=== PATIENT | male | born 1990 | race Caucasian/White ===

== ENCOUNTER 2019-09-26 20:17 | Emergency (ER) | payer MEDICAID, SELFPAY ==
[2019-09-26 20:22] VITALS: BP 189/148; PULSE 114; RESP 18; TEMP 37.6; O2SAT 98; BMI 32.5
[2019-09-26 20:28] VITALS: BMI 32.5
--- NOTE | 2019-09-26 20:40 | XRR_ITS ---
PROCEDURE INFORMATION: Exam: XR Chest, 1 View Exam date and time: 09/26/2019 9:26 PM Age: 29 years old Clinical indication: Other: Pain all over TECHNIQUE: Imaging protocol: XR of the chest Views: 1 view. COMPARISON: No relevant prior studies available. FINDINGS: Lungs: Unremarkable. No consolidation. Pleural space: Unremarkable. No pleural effusion. No pneumothorax. Heart/Mediastinum: Unremarkable. No cardiomegaly. Bones/joints: Unremarkable. XR/XR chest 1V portable [id number] IMPRESSION: No acute findings.
--- NOTE | 2019-09-26 20:40 | ECG_ITS ---
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 Measurements Intervals [place] Rate: 118 P: FL: -1 QRS: 49 QRSD: 90 T: 15 QT: 326 QTc: 457 Interpretive Statements SINUS TACHYCARDIA Non specific T wave changes Compared to ECG 01/28/2017 21:17:20 No significant change Electronically Signed On 09-27-2019 22:48:07 CDT by Neyda Parra M.D. [id number]
[2019-09-26 21:10] LABS: Basophils # 0.1 10^3/uL (0.0-0.1); Basophils % 0.8 %; Eosinophils % 0.2 %; Hematocrit 50.6 % (42.0-52.0); Hemoglobin 17.3 g/dL (11.7-16.6); Lymphocytes # 2.1 10^3/uL (0.8-4.8); Lymphocytes % 24.7 %; Mean Corpuscular HGB Conc 34.2 g/dL (30.0-36.0); Mean Corpuscular Hemoglobin 31.8 pg (28.0-34.0); Mean Platelet Volume 9.4 fL (7.4-10.4); Monocytes # 0.7 10^3/uL (0.2-0.9); Monocytes % 8.2 %; Neutrophils # 5.5 10^3/uL (1.8-7.7); Neutrophils % 65.7 %; Nucleated Red Blood Cells % 0 %; Platelet Count 407 10^3/cmm (130-400); Red Blood Count 5.44 10^6/uL (4.1-5.3); Red Cell Distribution Width 13.2 % (12.1-15.1); White Blood Count 8.4 10^3/uL (4.0-10.0)
[2019-09-26 21:30] LABS: INR 0.92 (0.8-1.2)
[2019-09-26 21:31] LABS: Partial Thromboplastin Time 27.2 SECONDS (23.9-36.7)
[2019-09-26 21:44] LABS: Alanine Aminotransferase 99 U/L (0-41); Albumin Level 5.2 g/dL (3.5-5.2); Alcohol Level 84 mg/dL (0-10); Alkaline Phosphatase 91 IU/L (40-130); Anion Gap 18.3 (5-19); Aspartate Amino Transferase 57 U/L (0-40); Blood Urea Nitrogen 11 mg/dL (6-20); Calcium 10.4 mg/dL (8.5-10.5); Carbon Dioxide 26 mmol/L (22-29); Chloride 98 mmol/L (98-107); Creatine Phosphokinase 281 U/L (39-308); Globulin 2.7 g/dL (1.3-4.6); Glomerular Filtration Rate 99.1 mL/min (90-130); Glucose 108 mg/dL (65-115); Lipase 30 U/L (13-60); Osmolality Calculated 283 mOsm/kg (285-295); Potassium 4.3 mmol/L (3.5-5.1); Sodium 138 mmol/L (136-145); Total Bilirubin 0.3 mg/dL (0.15-1.2); Total Protein 7.9 g/dL (6.6-8.7)
[2019-09-26 22:32] LABS: Amphetamines Screen Urine Negative (Negative); Barbiturates Screen Urine Negative (Negative); Benzodiazepines Screen Urine Negative (Negative); Cocaine Screen Urine Negative (Negative); Opiate Screen Urine Negative (Negative); PCP Screen Urine Negative (Negative); THC Screen Urine Negative (Negative)
--- NOTE | 2019-09-26 22:54 | ED_ITS ---
HPI - General Adult General: Chief complaint: General Medical Stated complaint: hurts everywhere Time Seen by Provider: 09/26/19 22:46 Source: patient Mode of arrival: ambulatory Limitations: no limitations History of Present Illness: HPI narrative: Cosme is a nice 29-year-old male who comes in today complaining of hurting everywhere. He cannot describe any 1 area that hurts more than another. He complains of diarrhea that just started today but denies any nausea or vomiting or abdominal pain. He also states that he drinks a large amount of alcohol daily. He would consider himself an alcoholic. He states he is never tried to stop drinking well in the past so he is uncertain what would happen if he did stop drinking. When asked what the patient would like help with today he states just get checked out . Associated symptoms: Reports malaise; Deny chest pain, confusion, diaphoresis, dyspnea, headache(s), nausea, rash, palpitations, syncope or vomiting Review of Systems Const: Reports: body aches and malaise; Denies: fever(s), chills, fatigue or diaphoresis Eyes: Denies: change in vision, blurry vision, blind spots, photophobia, eye discharge or eye redness ENMT: Denies: throat pain, odynophagia, hoarseness, swelling of lips/tongue, oral sores, ear or mastoid pain, ear discharge, change in hearing or nasal discharge Card: Denies: chest pain, palpitations, irregular heart rhythm, edema, lightheadedness, syncope, pre-syncope, dyspnea on exertion or orthopnea Resp: Denies: dyspnea, productive cough, non-productive cough, wheezing, hemoptysis or chest congestion GI: Reports: diarrhea; Denies: abdominal pain, nausea, vomiting, hematemesis, coffee ground emesis, heartburn, constipation, GI cramping, hematochezia or melena : Denies: flank pain, dysuria, urinary frequency, urinary urgency or hematuria Musc: Denies: neck pain, back pain, extremity pain, extremity swelling, joint pain, joint swelling, joint redness, joint warmth or joint stiffness Skin/Breast: Denies: rash, pruritus, erythema, skin tenderness or jaundice Neuro: Denies: headache(s), numbness in extremities, weakness in extremities, sensory changes, lack of coordination, difficulty walking, dizziness, vertigo, confusion, Slurred speech present or seizure-like activity Jason/Lymph: Denies: easy bruising, easy bleeding, petechiae, purpura or enlarged lymph nodes All/Imm: Denies: urticaria, throat swelling, tongue swelling, facial swelling or acute wheezing PFSH ED PFSH: Medical History GERD (gastroesophageal reflux disease) Hypertension Social History Smoking and tobacco status: current every day smoker Physical Exam Const: COMMON NORMALS: no acute distress, patient oriented x3, no limitations, healthy appearing and well nourished GENERAL APPEARANCE: cooperative, well kempt and well developed HENMT: COMMON NORMALS: normocephalic, atraumatic, external ears normal, EAC's normal and Normal external nose present HEAD & SCALP: normal to inspection, normocephalic and atraumatic FACE & SINUS: normal facial exam and face symmet terrence NOSE: Normal external nose present and Normal nares present EXTERNAL EAR: Yes external ears normal EXTERNAL AUDITORY CANAL: EAC's normal MOUTH: Normal oral and palatal mucosa present, lip normal and tongue normal Eye: COMMON NORMALS: Equal, round and reactive pupils present and conjunctivae normal GENERAL EYE: appearance normal, both eyes and all related structures ALIGNMENT: Yes alignment normal PERIORBITAL: periorbital findings normal EYELID: eyelids normal CONJUNCTIVA: Yes conjunctivae normal SCLERA: sclerae normal PUPIL: Yes Equal, round and reactive pupils present Neck/C-Spine: COMMON NORMALS: full ROM, no lymphadenopathy, supple, no meningeal signs and no JVD GENERAL: Yes normal visual inspection and Yes trachea midline Chest: COMMONS NORMALS: normal inspection of the chest and normal palpation of entire chest wall Resp: COMMON NORMALS: normal respiratory effort, No retractions and No use of accessory muscles EFFORT & INSPECTION: Yes able to speak in complete sentences and Yes symmetric chest movement AUSCULTATION: no crackles, no rales, no rhonchi and no wheezes Cardio: COMMON NORMALS: no JVD, regular rate, regular rhythm, S1 normal heart sound present and S2 normal heart sound present RATE: regular rate RHYTHM: regular rhythm HEART SOUNDS: S1 normal heart sound present, S2 normal heart sound present, no click, no gallops, no murmurs, no rubs and abnormal split S2 GI: COMMON NORMALS: Soft to palpation and No hepatosplenomegaly present PALPATION: Yes Soft to palpation, No Tenderness to palpation present (GI), No Guarding due to palpation present (GI), No Rigid due to palpation, Yes No hepatosplenomegaly present, No Hernia present, No Palpable mass present and No Pulsatile mass present : COMMON NORMALS: Yes no CVA tenderness BLADDER/KIDNEY EXAM: Yes no CVA tenderness Back/Pelvis: COMMON NORMALS: no CVA tenderness, thoracic and lumbar spine normal to inspection, no thoracic nor lumbar tenderness and thoraco-lumbar ROM normal Extremity: COMMON NORMALS: normal to inspection, full ROM, capillary refill normal, no joint enlargement, no clubbing, cyanosis or edema and no calf tenderness Neuro: COMMON NORMALS: patient oriented x3, CN's II-XII intact bilaterally, moves all extremities, no focal motor deficits and no sensory deficits noted MENINGEAL SIGNS: Yes no meningeal signs SPEECH: speech normal Psych: COMMON NORMALS: mental status grossly normal, Normal thought process present, cooperative, normal affect, speech normal and activity/motor behavior normal APPEARANCE: Yes well kempt SPEECH: Yes normal speech THOUGHT PROCESS: Normal thought process present Skin: COMMON NORMALS: no rashes or lesions noted, turgor normal, no jaundice, no petechiae and no mottling GENERAL SKIN EXAM: no rashes or lesions noted and turgor normal Course Vital Signs: Vital signs: Vital Signs Temperature 99.7 F H 09/26/19 20:22 Pulse Rate 100 09/27/19 01:11 Respiratory Rate 20 H 09/27/19 01:11 Blood Pressure 184/102 09/27/19 01:11 Pulse Oximetry 96 09/27/19 01:11 MDM - General Adult MDM Narrative: Medical decision making narrative: Cosme is ready to go home at this time. He states he wants to think about quitting drinking but does not intend to stop at this point. I believe he is an mild withdrawals even though he has a positive alcohol level it sounds as though he drinks heavily every day. He states he is tried to quit before and he is spoken with his nurse practitioner who is his primary care provider which she has not given him medicines that have been effective. I reviewed the case with Dr. Leslee Paradise who agrees to see the patient in the office early next week to discuss something stronger like Ativan or Librium but she wants to meet with him first to have that discussion as we want to be certain the patient will not take this medication and drink at the same time. I have offered inpatient admission to the patient for this but he refuses. He appears to be of sound mind and has the capacity to make this decision without any sign of impairment. I will go ahead and discharge him home per his request. Lab Data: Attestation: I reviewed the patient's lab results. Labs: Lab Results 09/26/19 09/26/19 09/26/19 Range/Units 21:00 21:00 21:00 WBC 8.4 (4.0-10.0) 10^3/ uL RBC 5.44 H (4.1-5.3) 10^6/u L Hgb 17.3 H (11.7-16.6) g/dL Hct 50.6 (42.0-52.0) % MCV 93.0 (80-94) fL MCH 31.8 (28.0-34.0) pg MCHC 34.2 (30.0-36.0) g/dL RDW 13.2 (12.1-15.1) % Plt Count 407 H (130-400) 10^3/c mm MPV 9.4 (7.4-10.4) fL Neut % (Auto) 65.7 % Lymph % (Auto) 24.7 % [place] % (Auto) 8.2 % Eos % (Auto) 0.2 % Baso % (Auto) 0.8 % Neut # (Auto) 5.5 (1.8-7.7) 10^3/u L Lymph # (Auto) 2.1 (0.8-4.8) 10^3/u L [place] # (Auto) 0.7 (0.2-0.9) 10^3/u L Eos # (Auto) 0.0 (0.0-0.8) 10^3/u L Baso # (Auto) 0.1 (0.0-0.1) 10^3/u L Nucleated RBC % (a uto) 0 % Nucleated RBCs # 0.0 /100WBC PT 12.60 (10.5-13.3) SECO NDS INR 0.92 (0.8-1.2) APTT 27.2 (23.9-36.7) SECO NDS Sodium 138 (136-145) mmol/L Potassium 4.3 (3.5-5.1) mmol/L Chloride 98 (98-107) mmol/L Carbon Dioxide 26 (22-29) mmol/L Anion Gap 18.3 (5-19) BUN 11 (6-20) mg/dL Creatinine 0.9 (0.7-1.2) mg/dL GFR Calculation 99.1 (90-130) mL/min Glucose 108 (65-115) mg/dL Calculated Osmolal ity 283 L (285-295) mOsm/k g Calcium 10.4 (8.5-10.5) mg/dL Magnesium 2.0 (1.7-2.3) mg/dL Total Bilirubin 0.3 (0.15-1.2) mg/dL AST 57 H (0-40) U/L ALT 99 H (0-41) U/L Alkaline Phosphata se 91 (40-130) IU/L Creatine Kinase 281 (39-308) U/L Total Protein 7.9 (6.6-8.7) g/dL Albumin 5.2 (3.5-5.2) g/dL Globulin 2.7 (1.3-4.6) g/dL Lipase 30 (13-60) U/L Urine Color (Yellow) Urine Appearance (CLEAR) Urine pH (5-7) Ur Specific Gravit y (1.005-1.030) Urine Protein (Negative) Urine Glucose (UA) (Normal) Urine Ketones (Negative) Urine Blood (Negative) Urine Nitrate (Negative) Urine Bilirubin (NEGATIVE) Urine Urobilinogen (Negative) mg/dL Ur Leukocyte Alexia ase (Negative) Urine RBC (0-2) /hpf Urine WBC (0-5) /hpf Ur Squamous Epith Cells (0-5) Urine Bacteria (NONE) Urine Opiates Scre en (Negative) ng/mL Ur Barbiturates Sc reen (Negative) ng/mL Ur Phencyclidine S crn (Negative) ng/mL Ur Amphetamines Sc reen (Negative) ng/mL U Benzodiazepines Scrn (Negative) ng/mL Urine Cocaine Scre en (Negative) ng/mL U Marijuana (THC) Screen (Negative) ng/mL Ethyl Alcohol 84 H (0-10) mg/dL 09/26/19 09/26/19 Range/Units 21:00 21:00 WBC (4.0-10.0) 10^3/ uL RBC (4.1-5.3) 10^6/u L Hgb (11.7-16.6) g/dL Hct (42.0-52.0) % MCV (80-94) fL MCH (28.0-34.0) pg MCHC (30.0-36.0) g/dL RDW (12.1-15.1) % Plt Count (130-400) 10^3/c mm MPV (7.4-10.4) fL Neut % (Auto) % Lymph % (Auto) % [place] % (Auto) % Eos % (Auto) % Baso % (Auto) % Neut # (Auto) (1.8-7.7) 10^3/u L Lymph # (Auto) (0.8-4.8) 10^3/u L [place] # (Auto) (0.2-0.9) 10^3/u L Eos # (Auto) (0.0-0.8) 10^3/u L Baso # (Auto) (0.0-0.1) 10^3/u L Nucleated RBC % (a uto) % Nucleated RBCs # /100WBC PT (10.5-13.3) SECO NDS INR (0.8-1.2) APTT (23.9-36.7) SECO NDS Sodium (136-145) mmol/L Potassium (3.5-5.1) mmol/L Chloride (98-107) mmol/L Carbon Dioxide (22-29) mmol/L Anion Gap (5-19) BUN (6-20) mg/dL Creatinine (0.7-1.2) mg/dL GFR Calculation (90-130) mL/min Glucose (65-115) mg/dL Calculated Osmolal ity (285-295) mOsm/k g Calcium (8.5-10.5) mg/dL Magnesium (1.7-2.3) mg/dL Total Bilirubin (0.15-1.2) mg/dL AST (0-40) U/L ALT (0-41) U/L Alkaline Phosphata se (40-130) IU/L Creatine Kinase (39-308) U/L Total Protein (6.6-8.7) g/dL Albumin (3.5-5.2) g/dL Globulin (1.3-4.6) g/dL Lipase (13-60) U/L Urine Color Yellow (Yellow) Urine Appearance Clear (CLEAR) Urine pH 7 (5-7) Ur Specific Gravit y 1.005 (1.005-1.030) Urine Protein Neg (Negative) Urine Glucose (UA) Norm (Normal) Urine Ketones Negative (Negative) Urine Blood Neg (Negative) Urine Nitrate Negative (Negative) Urine Bilirubin Neg (NEGATIVE) Urine Urobilinogen Norm (Negative) mg/dL Ur Leukocyte Alexia ase Negative (Negative) Urine RBC None (0-2) /hpf Urine WBC None (0-5) /hpf Ur Squamous Epith Cells None (0-5) Urine Bacteria Trace (NONE) Urine Opiates Scre en Negative (Negative) ng/mL Ur Barbiturates Sc reen Negative (Negative) ng/mL Ur Phencyclidine S crn Negative (Negative) ng/mL Ur Amphetamines Sc reen Negative (Negative) ng/mL U Benzodiazepines Scrn Negative (Negative) ng/mL Urine Cocaine Scre en Negative (Negative) ng/mL U Marijuana (THC) Screen Negative (Negative) ng/mL Ethyl Alcohol (0-10) mg/dL EKG Data^: EKG 1: Attestation: I personally reviewed and interpreted this EKG as follows: EKG interpretation date: 09/26/19 EKG interpretation time: 20:52 Interpretation: Normal sinus rhythm at 118 beats a minute, nonspecific ST-T wave changes. Computer generated interpretation: Chest X-Ray 09/26/19 20:40 IMPRESSION: No acute findings. Discharge Plan Discharge Patient Disposition: Home, Self-Care Clinical Impression: Alcoholism Condition: Stable Discharge Orders: Discharge Order (Routine); Ordered 09/26/19 Ordered By: Margie Carrillo Referrals: Leslee Jarvis MD [Staff Physician] - 1-3 days Discharge Diet: Advance as tolerated Discharge Activity: Increase activity as tolerated Patient Instructions: Alcoholism, Alcohol Intoxication (ED), Alcohol Withdrawal (ED) Activity Restrictions/Additional Instructions: Please return to the ER immediately for any of the signs or symptoms listed on your discharge instruction sheets, worsening/changing of your symptoms, you are not getting better as quickly as expected, or for ANY other cause or concerns. Return to the ER if your symptoms changes or worsen in any way or you have any other cause for concerns. Discharge Date/Time: 09/27/19 01:49 Coding Level of Care Code ED Belt Operator for Sarah Fwd Exam Comprehensive
[2019-09-26] MEDS: ondansetron 2 mg/ML SDV 2 mL 4 MG IVP (23:15)
[2019-09-26] MEDS: LORazepam 2 mg/mL INJ 1 mL 1 MG IVP (23:15)
[2019-09-26] MEDS: folic acid 1 MG, multivitamin inj 10 ML, thiamine 100 MG in sodium chloride 0.9% 1,000 ML 252.8 MG IV (23:30)
[2019-09-26 23:35] LABS: Bacteria Urine TRACE; Bilirubin Urine Neg (NEGATIVE); Blood Urine Neg (Negative); Glucose Urine UA Norm (Normal); Ketones Urine Negative (Negative); Leukocyte Esterase Urine Negative (Negative); Nitrate Urine Negative (Negative); Protein Urine Neg (Negative); Specific Gravity, Urine 1.005 (1.005-1.030); Urine Appearance Clear (CLEAR); Urine Color Yellow (Yellow); Urobilinogen Urine Norm (Negative); pH Urine 7 (5-7)
[2019-09-27 01:11] VITALS: BP 184/102; PULSE 100; RESP 20; O2SAT 96
[2019-09-27] MEDS: LORazepam 2 mg/mL INJ 1 mL 1 MG IVP (01:18)
== END 2019-09-27 01:49 | disposition home or self-care (01) ==
PROVIDERS: Emergency Provider Emergency Medicine
DX: F10.20 Alcohol dependence, uncomplicated (principal); Y90.9 Presence of alcohol in blood, level not specified; I10 Essential (primary) hypertension; F17.210 Nicotine dependence, cigarettes, uncomplicated
CPT/HCPCS: 12345; 36415; 71045; 80053; 80306; 80307; 81001; 82550; 83690; 83735; 85025; 85610; 85730; 93005; 96361; 96374; 96375; 96376; 99283; J2060; J2405; J3411; J3490; J7030

== ENCOUNTER 2020-04-06 12:27 | Emergency (ER) | payer MEDICAID, SELFPAY ==
[2020-04-06 12:33] VITALS: BP 153/114; PULSE 76; RESP 18; TEMP 36.7; O2SAT 100; BMI 29.5
[2020-04-06 13:05] VITALS: BP 127/92; PULSE 72; RESP 18; O2SAT 95
--- NOTE | 2020-04-06 13:32 | W.ED.ABDPA2 ---
HPI - Abdominal Pain General: Chief Complaint: Abdominal Pain Stated Complaint: SEVERE ABDOMINAL PAIN Time Seen by Provider: 04/06/20 13:32 Source: patient Mode of arrival: ambulatory Limitations: no limitations History of Present Illness: HPI narrative: Patient comes in with complaints of mid epigastric abdominal pain. Patient reports being without his omeprazole for about 1 week and started having discomfort yesterday. Patient went and got omeprazole and took 3 tablets yesterday but continued to have some discomfort this morning. Patient does report some improvement since arriving to the ER. Patient appears well. Patient appears in no acute distress. Patient reports history of hypertension and alcoholism. Review of Systems General: Reports: 10 or more systems reviewed and unremarkable except in HPI and below GI: Reports: abdominal pain [facility] ED PFSH: Medical History (Updated 04/06/20 @ 15:44 by ELAN Dao) GERD (gastroesophageal reflux disease) Hypertension Social History Smoking and tobacco status: current every day smoker Physical Exam Const: COMMON NORMALS: no acute distress and patient oriented x3 GENERAL APPEARANCE: cooperative HENMT: COMMON NORMALS: normocephalic and Normal external nose present HEAD & SCALP: normal to inspection and normocephalic NOSE: Normal external nose present MOUTH: Normal oral and palatal mucosa present THROAT: posterior oropharynx normal Eye: GENERAL EYE: appearance normal, both eyes and all related structures Neck/C-Spine: COMMON NORMALS: full ROM Lymph: LYMPHATIC: no lymphadenopathy noted Chest: COMMONS NORMALS: normal inspection of the chest Resp: COMMON NORMALS: normal respiratory effort EFFORT & INSPECTION: Yes able to speak in complete sentences Cardio: COMMON NORMALS: regular rate and regular rhythm RATE: regular rate RHYTHM: regular rhythm GI: COMMON NORMALS: Soft to palpation and non-tender AUSCULTATION: Yes normoactive bowel sounds PALPATION: Yes Soft to palpation : COMMON NORMALS: Yes no CVA tenderness BLADDER/KIDNEY EXAM: Yes no CVA tenderness Back/Pelvis: COMMON NORMALS: no CVA tenderness and thoracic and lumbar spine normal to inspection Extremity: COMMON NORMALS: normal to inspection Neuro: COMMON NORMALS: patient oriented x3 and moves all extremities Psych: COMMON NORMALS: mental status grossly normal and cooperative Skin: COMMON NORMALS: no rashes or lesions noted GENERAL SKIN EXAM: no rashes or lesions noted Course Vital Signs: Vital signs: Vital Signs Temperature 98.1 F 04/06/20 12:33 Pulse Rate 76 04/06/20 12:33 Respiratory Rate 18 04/06/20 12:33 Blood Pressure 153/114 04/06/20 12:33 Pulse Oximetry 100 04/06/20 12:33 MDM - Abdominal Pain MDM Narrative: Medical decision making narrative: Patient comes in today with complaints of epigastric abdominal pain. On exam abdomen is soft and nontender. Patient appears well. Heart tones are normal. Lung sounds are clear. Vital signs are normal except for mild elevation in blood pressure. Differential diagnosis includes but not limited to gastritis, diverticulitis, appendicitis, colitis. Laboratory values noted white blood cell count of 14,000, platelets of 429. CMP was normal. CT scan of the abdomen and pelvis noted some constipation but otherwise normal. Reviewed exam with patient suspect patient probably has gastritis secondary to the abrupt cessation of his PPI. Will restart pantoprazole and recommend follow-up for further evaluation of his gastric discomfort with recommendations of endoscopy. Patient reports understanding and agreed to plan and states he will follow up with his primary care provider, Natividad Easley. Lab Data: Labs: Lab Results 04/06/20 04/06/20 Range/Units 14:24 14:24 WBC 14.9 H (4.0-10.0) 10^3/ uL RBC 5.43 H (4.1-5.3) 10^6/u L Hgb 16.3 (11.7-16.6) g/dL Hct 49.2 (42.0-52.0) % MCV 90.6 (80-94) fL MCH 30.0 (28.0-34.0) pg MCHC 33.1 (30.0-36.0) g/dL RDW 13.8 (12.1-15.1) % Plt Count 429 H (130-400) 10^3/c mm MPV 9.5 (7.4-10.4) fL Neut % (Auto) 82.6 % Lymph % (Auto) 10.8 % [place] % (Auto) 5.9 % Eos % (Auto) 0.2 % Baso % (Auto) 0.1 % Neut # (Auto) 12.29 H (1.8-7.7) 10^3/u L Lymph # (Auto) 1.6 (0.8-4.8) 10^3/u L [place] # (Auto) 0.9 (0.2-0.9) 10^3/u L Eos # (Auto) 0.0 (0.0-0.8) 10^3/u L Baso # (Auto) 0.0 (0.0-0.1) 10^3/u L Nucleated RBC % (a uto) 0 % Nucleated RBCs # 0.0 /100WBC Sodium 137 (136-145) mmol/L Potassium 4.7 (3.5-5.1) mmol/L Chloride 100 (98-107) mmol/L Carbon Dioxide 26 (22-29) mmol/L Anion Gap 15.7 (5-19) BUN 15 (6-20) mg/dL Creatinine 0.8 (0.7-1.2) mg/dL GFR Calculation 113.5 (90-130) mL/min Glucose 105 (65-115) mg/dL Calculated Osmolal ity 285 (285-295) mOsm/k g Calcium 9.7 (8.5-10.5) mg/dL Total Bilirubin 0.3 (0.15-1.2) mg/dL AST 17 (0-40) U/L ALT 35 (0-41) U/L Alkaline Phosphata se 87 (40-130) IU/L Total Protein 7.9 (6.6-8.7) g/dL Albumin 4.7 (3.5-5.2) g/dL Globulin 3.2 (1.3-4.6) g/dL Lipase 23 (13-60) U/L Discharge Plan Discharge Patient Disposition: Home Clinical Impression: Gastritis Qualifiers: Gastritis type: unspecified gastritis Chronicity: chronic Gastritis bleeding: presence of bleeding unspecified Qualified Code(s): K29.50 - Unspecified chronic gastritis without bleeding Condition: Stable Prescriptions: New pantoprazole 40 mg tablet,delayed release (DR/EC) 40 mg PO DAILY Qty: 30 RF: 0 Discontinued omeprazole 20 mg Tablet,Delayed Release (Dr/Ec) 20 mg PO DAILY@1000 RF: 0 No Action losartan 50 mg tablet 50 mg PO DAILY@1000 RF: 0 amlodipine 10 mg Tablet 10 mg PO DAILY@1000 RF: 0 metoprolol tartrate 25 mg Tablet 12.5 mg PO BID@1000,2100 RF: 0 Discharge Orders: Discharge ED (Routine); Ordered 04/06/20 Ordered By: Idris Figueroa Discharge Diet: Usual diet Discharge Activity: Increase activity as tolerated Patient Instructions: Gastritis (ED), Diet for Ulcers and Gastritis (ED) Activity Restrictions/Additional Instructions: Drink plenty of fluids. Medications as directed. Follow-up with primary care for further treatment and evaluation. Return to the emergency department for new concerns. Coding Level of Care Code ED Market Research Assistant for Sarah Fwcurtis Exam Comprehensive
[2020-04-06 14:35] VITALS: BP 124/79; PULSE 66; RESP 18; O2SAT 98
[2020-04-06 14:35] LABS: Basophils % 0.1 %; Eosinophils % 0.2 %; Hematocrit 49.2 % (42.0-52.0); Hemoglobin 16.3 g/dL (11.7-16.6); Lymphocytes # 1.6 10^3/uL (0.8-4.8); Lymphocytes % 10.8 %; Mean Corpuscular HGB Conc 33.1 g/dL (30.0-36.0); Mean Corpuscular Volume 90.6 fL (80-94); Mean Platelet Volume 9.5 fL (7.4-10.4); Monocytes # 0.9 10^3/uL (0.2-0.9); Monocytes % 5.9 %; Neutrophils # 12.29 10^3/uL (1.8-7.7); Neutrophils % 82.6 %; Nucleated Red Blood Cells % 0 %; Platelet Count 429 10^3/cmm (130-400); Red Blood Count 5.43 10^6/uL (4.1-5.3); Red Cell Distribution Width 13.8 % (12.1-15.1); White Blood Count 14.9 10^3/uL (4.0-10.0)
--- NOTE | 2020-04-06 14:47 | CT_ITS ---
WS: [id number] CT ABDOMEN PELVIS TECHNIQUE: Contrast-enhanced CT of the abdomen and pelvis with coronal and sagittal reformatted image s. CLINICAL INFORMATION: abd pain COMPARISON: None. DLP: 817.[address] scans at [facility] use at least one of these dose optimization techniques: automat ed exposure control; mA and/or kV adjustment per patient size (includes targeted exams where dose is matched to clinical indication); or iterative reconstruction. FINDINGS: Mild diffuse fatty infiltration of the liver. Normal gallbladder. Normal portal vein and splenic vein . Normal spleen. Normal GE junction. No evidence of small or large bowel obstruction. Normal caliber abdominal aorta. Adrenal glands are normal. Normal renal parenchymal enhancement. No hydronephrosis. Normal appendix in the right lower quadrant. Scattered fluid in the transverse colon with a few air-f luid levels. No evidence of high-grade small or large bowel obstruction. Mild sigmoid constipation. N o abdominal or pelvic lymphadenopathy. No inguinal lymphadenopathy. CT/CT abdomen pelvis w con* [id number] IMPRESSION: 1. Normal bilateral renal precarinal enhancement. No hydronephrosis. 2. Both ureters are decompressed. 3. Normal appendix in the right lower quadrant. 4. Scattered fluid in the transverse colon. No evidence of high-grade small or large bowel obstruction. 5. Mild sigmoid constipation. 6. No other significant findings.
[2020-04-06 14:49] LABS: Alanine Aminotransferase 35 U/L (0-41); Albumin Level 4.7 g/dL (3.5-5.2); Alkaline Phosphatase 87 IU/L (40-130); Anion Gap 15.7 (5-19); Aspartate Amino Transferase 17 U/L (0-40); Blood Urea Nitrogen 15 mg/dL (6-20); Calcium 9.7 mg/dL (8.5-10.5); Carbon Dioxide 26 mmol/L (22-29); Chloride 100 mmol/L (98-107); Creatinine Clr Calc Pharmacy 150.3089; Globulin 3.2 g/dL (1.3-4.6); Glomerular Filtration Rate 113.5 mL/min (90-130); Glucose 105 mg/dL (65-115); Lipase 23 U/L (13-60); Osmolality Calculated 285 mOsm/kg (285-295); Potassium 4.7 mmol/L (3.5-5.1); Sodium 137 mmol/L (136-145); Total Bilirubin 0.3 mg/dL (0.15-1.2); Total Protein 7.9 g/dL (6.6-8.7)
[2020-04-06] MEDS: iohexol 300 mg/mL 100 mL Btl IV (15:00)
[2020-04-06] MEDS: promethazine 25 mg/mL SDV 1 mL 12.5 MG XX (15:33)
[2020-04-06] MEDS: famotidine 20 mg/2 mL INJ IVP (15:33)
[2020-04-06] MEDS: sodium chloride 0.9% 500 ML 999 ML IV (15:42)
[2020-04-06 16:17] VITALS: BP 138/77; PULSE 67; RESP 18; O2SAT 98
[2020-04-06 16:20] VITALS: BP 128/64; PULSE 74; RESP 18; O2SAT 98
== END 2020-04-06 16:22 | disposition home or self-care (01) ==
PROVIDERS: Emergency Provider Nurse Practitioner Family
DX: K29.50 Unspecified chronic gastritis without bleeding (principal); I10 Essential (primary) hypertension; F17.210 Nicotine dependence, cigarettes, uncomplicated
CPT/HCPCS: 12345; 74177; 80053; 83690; 85025; 96374; 99282; 99283; J2550; J3490; J7040; Q9967

== ENCOUNTER 2020-04-13 03:03 | Inpatient (IN) | payer MEDICAID, SELFPAY ==
[2020-04-13 03:05] VITALS: BP 159/113; PULSE 116; RESP 21; TEMP 36.9; O2SAT 100; BMI 29.5
--- NOTE | 2020-04-13 03:12 | ED_ITS ---
HPI - Abdominal Pain General: Chief Complaint: Anxiety Stated Complaint: STRESSED / ABD PAIN Time Seen by Provider: 04/13/20 03:06 Source: patient and EMS Mode of arrival: EMS Limitations: no limitations History of Present Illness: HPI narrative: 29-year-old male is here by EMS. Patient called EMS as he had been stressed out. He states he is also been having abdominal pain. Patient was seen here for gastritis last week and had a normal CT of his abdomen. Patient states he continued to have some sharp pains he rates a 4 out of 10. He states that he has been stressed out things at home but denies any suicidal or homicidal thoughts. Associated Symptoms: Denies chills, dysuria and fever(s) Review of Systems Const: Denies: fever(s), chills, body aches or change in appetite Eyes: Denies: blurry vision or eye discomfort ENMT: Denies: throat pain or dental pain Card: Denies: chest pain Resp: Denies: dyspnea GI: Reports: abdominal pain : Denies: dysuria Musc: Denies: neck pain or back pain Skin/Breast: Denies: rash Neuro: Denies: headache(s) Psych: Denies: depression Jason/Lymph: Denies: easy bruising All/Imm: Denies: urticaria PFSH ED PFSH: Medical History (Updated 04/13/20 @ 05:10 by Pino Raines MD) GERD (gastroesophageal reflux disease) Hypertension Social History Smoking and tobacco status: current every day smoker Physical Exam Const: COMMON NORMALS: no acute distress, patient oriented x3 and healthy nicole earing HENMT: COMMON NORMALS: normocephalic and atraumatic HEAD & SCALP: normocephalic and atraumatic Eye: COMMON NORMALS: Equal, round and reactive pupils present and EOMs intact bilaterally PUPIL: Yes Equal, round and reactive pupils present Neck/C-Spine: COMMON NORMALS: full ROM and supple Chest: COMMONS NORMALS: normal inspection of the chest and normal palpation of entire chest wall Resp: COMMON NORMALS: normal respiratory effort, No retractions, No use of accessory muscles and clear to auscultation bilaterally AUSCULTATION: clear to auscultation bilaterally Cardio: COMMON NORMALS: regular rate, regular rhythm and No murmurs present (Cardio) RATE: regular rate RHYTHM: regular rhythm GI: COMMON NORMALS: Normal to inspection, nondistended, normoactive bowel sounds present, Soft to palpation, non-tender and no masses PALPATION: Yes Soft to palpation Extremity: COMMON NORMALS: normal to inspection and full ROM Neuro: COMMON NORMALS: patient oriented x3, moves all extremities and no focal motor deficits Psych: COMMON NORMALS: mental status grossly normal, Normal thought process present and cooperative THOUGHT PROCESS: Normal thought process present Skin: COMMON NORMALS: no rashes or lesions noted and no wounds GENERAL SKIN EXAM: no rashes or lesions noted Course Vital Signs: Vital signs: Vital Signs Temperature 98.4 F 04/13/20 03:05 Pulse Rate 74 04/13/20 04:47 Respiratory Rate 20 H 04/13/20 04:47 Blood Pressure 172/110 04/13/20 04:47 Pulse Oximetry 99 04/13/20 04:47 MDM - Abdominal Pain MDM Narrative: Medical decision making narrative: Patient presents here with abdominal pain. After talking for the states he has been seeing some things and thinks that people are out to get him. He is not suicidal homicidal but he is voluntarily wanting to be admitted to the psychiatric unit. I spoke to Dr. Campos and will admit. Patient is not under 96-hour hold as he does not pose a threat to himself or others at this time but will voluntarily admit him to the psychiatric unit. His abdominal exam here is benign and blood work is all normal. He had a CT 1 week ago just showed gastritis. Lab Data: Labs: Lab Results 04/13/20 04/13/20 04/13/20 Range/Units 03:25 03:25 04:44 WBC 12.8 H (4.0-10.0) 10^3/ uL RBC 5.30 (4.1-5.3) 10^6/u L Hgb 16.1 (11.7-16.6) g/dL Hct 46.5 (42.0-52.0) % MCV 87.7 (80-94) fL MCH 30.4 (28.0-34.0) pg MCHC 34.6 (30.0-36.0) g/dL RDW 13.6 (12.1-15.1) % Plt Count 510 H (130-400) 10^3/c mm MPV 9.1 (7.4-10.4) fL Neut % (Auto) 69.8 % Lymph % (Auto) 22.5 % [place] % (Auto) 6.7 % Eos % (Auto) 0.3 % Baso % (Auto) 0.5 % Neut # (Auto) 8.90 H (1.8-7.7) 10^3/u L Lymph # (Auto) 2.9 (0.8-4.8) 10^3/u L [place] # (Auto) 0.9 (0.2-0.9) 10^3/u L Eos # (Auto) 0.0 (0.0-0.8) 10^3/u L Baso # (Auto) 0.1 (0.0-0.1) 10^3/u L Nucleated RBC % (a uto) 0 % Nucleated RBCs # 0.0 /100WBC Sodium 133 L (136-145) mmol/L Potassium 3.4 L (3.5-5.1) mmol/L Chloride 93 L (98-107) mmol/L Carbon Dioxide 22 (22-29) mmol/L Anion Gap 21.4 H (5-19) BUN 12 (6-20) mg/dL Creatinine 0.8 (0.7-1.2) mg/dL GFR Calculation 113.5 (90-130) mL/min Glucose 122 H (65-115) mg/dL Calculated Osmolal ity 277 L (285-295) mOsm/k g Calcium 10.2 (8.5-10.5) mg/dL Total Bilirubin 1.0 (0.15-1.2) mg/dL AST 18 (0-40) U/L ALT 29 (0-41) U/L Alkaline Phosphata se 79 (40-130) IU/L Total Protein 8.0 (6.6-8.7) g/dL Albumin 4.8 (3.5-5.2) g/dL Globulin 3.2 (1.3-4.6) g/dL Salicylates < 0.3 L (3-10) mg/dL Urine Opiates Scre en Negative (Negative) ng/mL Acetaminophen < 5.0 L (10-30) ug/mL Ur Barbiturates Sc reen Negative (Negative) ng/mL Ur Phencyclidine S crn Negative (Negative) ng/mL Ur Amphetamines Sc reen Positive H (Negative) ng/mL U Benzodiazepines Scrn Negative (Negative) ng/mL Urine Cocaine Scre en Negative (Negative) ng/mL U Marijuana (THC) Screen Negative (Negative) ng/mL Ethyl Alcohol < 10 (0-10) mg/dL Discharge Plan Discharge Patient Disposition: Admitted As Inpatient Admit Provider: José Miguel Campos Clinical Impression: Anxiety, Psychosis, Methamphetamine abuse Condition: Stable Coding Level of Care Code ED Tool And Die Manager for Sarah Fwd Exam Comprehensive
[2020-04-13] MEDS: LORazepam 2 mg/mL INJ 1 mL IV (03:27)
[2020-04-13] MEDS: sodium chloride 0.9% 1,000 ML 999 ML IV (03:27)
[2020-04-13 03:40] LABS: Basophils # 0.1 10^3/uL (0.0-0.1); Basophils % 0.5 %; Eosinophils % 0.3 %; Hematocrit 46.5 % (42.0-52.0); Hemoglobin 16.1 g/dL (11.7-16.6); Lymphocytes # 2.9 10^3/uL (0.8-4.8); Lymphocytes % 22.5 %; Mean Corpuscular HGB Conc 34.6 g/dL (30.0-36.0); Mean Corpuscular Hemoglobin 30.4 pg (28.0-34.0); Mean Corpuscular Volume 87.7 fL (80-94); Mean Platelet Volume 9.1 fL (7.4-10.4); Monocytes # 0.9 10^3/uL (0.2-0.9); Monocytes % 6.7 %; Neutrophils % 69.8 %; Nucleated Red Blood Cells % 0 %; Platelet Count 510 10^3/cmm (130-400); Red Cell Distribution Width 13.6 % (12.1-15.1); White Blood Count 12.8 10^3/uL (4.0-10.0)
[2020-04-13 04:11] LABS: Alanine Aminotransferase 29 U/L (0-41); Albumin Level 4.8 g/dL (3.5-5.2); Alkaline Phosphatase 79 IU/L (40-130); Anion Gap 21.4 (5-19); Aspartate Amino Transferase 18 U/L (0-40); Blood Urea Nitrogen 12 mg/dL (6-20); Calcium 10.2 mg/dL (8.5-10.5); Carbon Dioxide 22 mmol/L (22-29); Chloride 93 mmol/L (98-107); Creatinine Clr Calc Pharmacy 150.3089; Globulin 3.2 g/dL (1.3-4.6); Glomerular Filtration Rate 113.5 mL/min (90-130); Glucose 122 mg/dL (65-115); Osmolality Calculated 277 mOsm/kg (285-295); Potassium 3.4 mmol/L (3.5-5.1); Sodium 133 mmol/L (136-145)
[2020-04-13 04:17] LABS: Acetaminophen < 5.0 ug/mL (10-30); Alcohol Level < 10 mg/dL (0-10); Salicylate < 0.3 mg/dL (3-10)
[2020-04-13 04:47] VITALS: BP 172/110; PULSE 74; RESP 20; O2SAT 99
--- NOTE | 2020-04-13 04:47 | PC.NURSE ---
pt continues to move with BP. Several attempt to collect BP measurement
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
[2020-04-13 05:02] LABS: Amphetamines Screen Urine Positive (Negative); Barbiturates Screen Urine Negative (Negative); Benzodiazepines Screen Urine Negative (Negative); Cocaine Screen Urine Negative (Negative); Opiate Screen Urine Negative (Negative); PCP Screen Urine Negative (Negative); THC Screen Urine Negative (Negative)
[2020-04-13 06:00] VITALS: BP 145/102; PULSE 109; RESP 20; TEMP 36.7; O2SAT 98
[2020-04-13] MEDS: hyDROXYzine 25 mg Capsule 50 MG PO (12:10)
[2020-04-13] MEDS: nicotine 2 mg Gum BUCCAL (12:55)
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
[2020-04-13 15:15] VITALS: BP 145/102; PULSE 109; RESP 20; TEMP 36.7; O2SAT 98
--- NOTE | 2020-04-14 09:43 | PC.SLP ---
Smoking Cessation information sent to patient.
== END 2020-04-13 15:15 | disposition left against medical advice (07) | DRG 885 ==
LOC: ER 04:50 → NP 07:33
PROVIDERS: Admitting Provider Psychiatry & Neurology Psychiatry; Emergency Provider Emergency Medicine; PCP Nurse Practitioner Family; Visit Provider Psychiatry & Neurology Psychiatry
DX: F29 Unspecified psychosis not due to a substance or known physiological condition (principal); K21.9 Gastro-esophageal reflux disease without esophagitis; I10 Essential (primary) hypertension; F17.210 Nicotine dependence, cigarettes, uncomplicated; F10.10 Alcohol abuse, uncomplicated; F15.10 Other stimulant abuse, uncomplicated; Z53.29 Procedure and treatment not carried out because of patient's decision for other reasons; F41.9 Anxiety disorder, unspecified
CPT/HCPCS: 12345; 80053; 80306; 80307; 85025; 99282; J2060; J7030

== ENCOUNTER 2020-05-08 10:57 | Emergency (ER) | payer MEDICAID, SELFPAY ==
[2020-05-08 11:00] VITALS: O2SAT 98
[2020-05-08 11:01] VITALS: BP 137/96; RESP 18; TEMP 36.3; O2SAT 98; BMI 27.3
--- NOTE | 2020-05-08 11:08 | ED_ITS ---
HPI - Allergic Reaction General: Chief complaint: Allergic Reaction Stated complaint: RASH Time Seen by Provider: 05/08/20 11:01 Source: patient and EMS Mode of arrival: EMS Limitations: no limitations History of Present Illness: HPI narrative: Patient is a 29-year-old male who presents to ED today via EMS for complaints of a rash. Patient tells me this morning when he awoke he began noticing itchiness all over and when he turned on the lights he noticed a rash. He describes the rash as pruritic. He has no other complaints at this time. Patient is not having any difficulty breathing or swallowing. Denies starting any new medications. Denies any new household, chemical, environmental exposures. No skin sloughing or blistering. No oral/mucosal lesions. MD complaint: hives Onset (ago): hour(s) Exposure: unknown Associated symptoms: Reports itching; Deny nausea or vomiting Treatment prior to arrival: benadryl (50mg IV benadryl given by EMS) Previous Allergic Reaction History: none Review of Systems Const: Denies: fever(s), chills, body aches or fatigue Eyes: Denies: change in vision ENMT: Denies: uvular edema, enlarged tonsils or odynophagia Card: Denies: chest pain Resp: Denies: dyspnea GI: Denies: nausea or vomiting Musc: Denies: neck pain or extremity pain Skin/Breast: Reports: rash and pruritus Neuro: Denies: headache(s), numbness in extremities, weakness in extremities or sensory changes PFS ED PFSH: Medical History (Updated 05/08/20 @ 11:59 by KARISSA Davenport) GERD (gastroesophageal reflux disease) Hypertension Social History Smoking and tobacco status: current every day smoker cigarettes Packs smoked per day: 0.5 Years cigarettes smoked: 16 Second hand smoke exposure: Yes Alcohol intake: current Alcohol intake frequency: few times a week Alcohol type: hard liquor Last alcohol use date: 04/14/20 Other details last alcohol use: drank until drunk Lives independently: No Household members: family Marital status: Single service: No Current occupational status: employed History of recent travel: No Current gender identity: Male Physical Exam Const: COMMON NORMALS: no acute distress, average body habitus, patient oriented x3, no limitations, healthy appearing, alert and well nourished GENERAL APPEARANCE: cooperative ORIENTATION/CONSCIOUSNESS: Yes awake, Yes oriented to person, Yes oriented to place and Yes oriented to time HENMT: COMMON NORMALS: normocephalic and atraumatic HEAD & SCALP: normocephalic and atraumatic MOUTH: Normal oral and palatal mucosa present and other (no angioedema) THROAT: no uvular edema Resp: COMMON NORMALS: normal respiratory effort EFFORT & INSPECTION: Yes able to speak in complete sentences Neuro: TEDDY COMA SCALE: document GCS findings Elma coma scale eye opening: Spontaneous Elma coma scale verbal response: Orientated Teddy coma scale motor response: Obey commands Teddy coma scale total score: 15 COMMON NORMALS: patient oriented x3 SENSORIUM/ORIENTATION: Yes alert, Yes oriented to person, Yes oriented to place and Yes oriented to time Skin: RASHES: rashes noted (diffuse urticaria ) Course Reevaluation(s): Reevaluation #1: Patient's have are almost completely gone following the 50mg IV benadryl given by EMS and the 125mg solu-medrol and 40mg pepcid given here. He is stable for DC with return to ED precautions at this time. Vital Signs: Vital signs: Vital Signs Temperature 97.4 F L 05/08/20 11:01 Pulse Rate 76 05/08/20 11:27 Respiratory Rate 18 05/08/20 11:01 Blood Pressure 126/92 05/08/20 11:27 Pulse Oximetry 98 05/08/20 11:27 Discharge Plan Discharge Patient Disposition: Home Clinical Impression: Urticaria Condition: Stable Prescriptions: No Action amlodipine 10 mg tablet 10 mg PO DAILY@1000 Qty: 30 RF: 2 losartan 50 mg tablet 50 mg PO DAILY@1000 Qty: 30 RF: 2 omeprazole 20 mg capsule,delayed release(DR/EC) 20 mg PO DAILY Qty: 30 RF: 2 metoprolol tartrate 25 mg tablet 12.5 mg PO BID@1000,2100 Qty: 60 RF: 2 fluoxetine [Prozac] 20 mg capsule 20 mg PO DAILY Qty: 30 RF: 2 Discharge Orders: Discharge ED (Routine); Ordered 05/08/20 Ordered By: Mónica Merlos Referrals: Easley,KAREN Cesar [Primary Care Provider] - Patient Instructions: Urticaria, Urticaria (ED) Coding Level of Care Code ED Track Laying Supervisor for Chg Fwd Exam Detailed
[2020-05-08] MEDS: famotidine 20 mg/2 mL INJ 40 MG IVP (11:24)
[2020-05-08 11:27] VITALS: BP 126/92; PULSE 76; O2SAT 98
[2020-05-08 12:22] VITALS: BP 121/87; PULSE 77; O2SAT 97
== END 2020-05-08 12:10 | disposition home or self-care (01) ==
PROVIDERS: Emergency Provider Physician Assistant; PCP Nurse Practitioner Family
DX: L50.9 Urticaria, unspecified (principal); I10 Essential (primary) hypertension; F17.210 Nicotine dependence, cigarettes, uncomplicated
CPT/HCPCS: 12345; 96374; 96375; 99283; J2930; J3490

== ENCOUNTER 2020-07-17 06:38 | Emergency (ER) | payer BC, SELFPAY ==
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
[2020-07-17 06:39] VITALS: BP 160/97; RESP 18; TEMP 36.9
[2020-07-17 06:40] VITALS: RESP 22
[2020-07-17 06:41] VITALS: BMI 30.7
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
[2020-07-17] MEDS: sodium chloride 0.9% 1,000 ML 999 ML IV (06:45)
[2020-07-17] MEDS: succinylcholine 20 mg/mL SDV 10mL 200 MG IVP (06:51)
[2020-07-17] MEDS: vecuronium 10 mg SDV IVP (06:55)
[2020-07-17] MEDS: propofol 1,000 MG/100 ML INJ 6 MG IV (06:55)
[2020-07-17 07:01] VITALS: BP 183/112; PULSE 121; RESP 24; O2SAT 100
--- NOTE | 2020-07-17 07:01 | ECG_ITS ---
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 Measurements Intervals [place] Rate: 123 P: 52 MT: 150 QRS: 43 QRSD: 94 T: 40 QT: 310 QTc: 444 Interpretive Statements SINUS TACHYCARDIA Compared to ECG 09/26/2019 22:51:33 T-wave abnormality no longer present Electronically Signed On 07-18-2020 15:34:19 CDT by Kory Palomo M.D. [id number]
[2020-07-17 07:05] VITALS: BP 170/98; PULSE 117; RESP 24; O2SAT 100
[2020-07-17 07:10] VITALS: BP 160/97; PULSE 114; RESP 20; O2SAT 100
--- NOTE | 2020-07-17 07:44 | ANES.PROC ---
Anesthesia Procedures Procedure/Date: 07/17/20 Intubation: Time Out Performed: No Consent: requested by attending/covering physician and emergency procedure Sedative (amount): etomidate (20 mg) Paralytic (amount): succinylcholine (200 mg) Laryngoscope: Juan C ET Tube Size: 4 ET Tube Uncuffed: No Tube Secured Location: teeth Tube Placement Confirmation: visualized tube passing through cords, equal breath sounds bilaterally and color change noted Patient Tolerated Procedure: well Intubation Complications: none Additional Comments: Order to start propofol sedation OLIVIA
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
== END 2020-07-17 07:30 | disposition short-term general hospital (02) ==
PROVIDERS: Emergency Provider Family Medicine; PCP Nurse Practitioner Family
DX: S01.83XA Puncture wound without foreign body of other part of head, initial encounter (principal); S01.532A Puncture wound without foreign body of oral cavity, initial encounter; X95.9XXA Assault by unspecified firearm discharge, initial encounter; I10 Essential (primary) hypertension; F17.210 Nicotine dependence, cigarettes, uncomplicated
CPT/HCPCS: 36430; 51702; 70250; 71045; 86900; 86920; 93005; 94002; 94799; 96365; 96367; 96368; 99291; 99292; J0330; J2704; J3490; J7030; P9040

== ENCOUNTER 2020-11-02 04:25 | Emergency (ER) | payer BC, MEDICAID, SELFPAY ==
[2020-11-02 04:43] VITALS: BP 163/134; PULSE 131; RESP 18; TEMP 36.7; O2SAT 96; BMI 26.6
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
[2020-11-02] MEDS: LORazepam 2 mg Tablet PO (05:52)
[2020-11-02 06:07] VITALS: BP 157/99; PULSE 126; RESP 18; TEMP 36.7; O2SAT 96
== END 2020-11-02 06:08 | disposition home or self-care (01) ==
PROVIDERS: Emergency Provider Family Medicine; PCP Nurse Practitioner Family
DX: F41.9 Anxiety disorder, unspecified (principal); F43.10 Post-traumatic stress disorder, unspecified; I10 Essential (primary) hypertension; F17.210 Nicotine dependence, cigarettes, uncomplicated
CPT/HCPCS: 99282

== ENCOUNTER 2020-12-01 12:18 | Emergency (ER) | payer BC, MEDICAID, SELFPAY ==
[2020-12-01 12:20] VITALS: BP 139/94; PULSE 69; RESP 18; TEMP 36.4; O2SAT 95; BMI 28.0
--- NOTE | 2020-12-01 13:09 | CT_ITS ---
WS: [id number] Exam: CT lumbar spine wo con* [id number] Date/Time of Exam: 12/01/2020 1:12 PM Reason For Exam: back pain with radicular Leg pain DLP: 2030.[address] scans at [facility] use at least one of these dose optimization techniques: automat ed exposure control; mA and/or kV adjustment per patient size (includes targeted exams where dose is matched to clinical indication); or iterative reconstruction. The lumbar spine evaluated in the axial plane with sagittal and coronal reformatted images. There is posterior right paracentral disc herniation with impingement upon the neural sac and the rig ht nerve root in the subarticular spaces. No other sign of significant disc bulge or spinal canal benji nosis. Bulging disc material narrows the right neural foramen at L5-S1. Remaining neural foramina wer e patent. There were no fractures or significant bony anomalies identified. The vertebrae and posteri or elements appear normal otherwise. No retroperitoneal or paraspinal soft tissue abnormalities were demonstrated. CT/CT lumbar spine wo con* [id number] IMPRESSION: 1. Posterior right paracentral disc herniation at L5-S1. There is a neural sac and right nerve root compression in the subarticular space. 2. Bulging disc material also narrows the right neural foramen at L5-S1. The re maining neural foramina are patent.
--- NOTE | 2020-12-01 13:10 | XR_ITS ---
WS: [id number] Exam: XR KUB portable [id number] Date/Time of Exam: 12/01/2020 1:30 PM Reason For Exam: abd pain No bowel obstruction or free air. Moderate amount retained stool in the colon. No sign of organ enlar gement. Regional bony elements are intact. XR/XR KUB portable [id number] IMPRESSION: 1. No acute abdominal finding. 2. Moderate amount retained stool in the colon.
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
[2020-12-01 14:31] VITALS: PULSE 70; RESP 15; O2SAT 95
[2020-12-01 14:43] LABS: Add Urine Microscopic? NO; Charge for UA Resulting for Rev
[2020-12-01 14:45] LABS: Urine Color Yellow (Yellow)
[2020-12-01 14:46] LABS: Bilirubin Urine Neg (Negative); Blood Urine Neg (Negative); Glucose Urine UA Norm (Normal); Ketones Urine Negative (Negative); Leukocyte Esterase Urine Negative (Negative); Nitrate Urine Negative (Negative); Protein Urine Neg (Negative); Urine Appearance Clear (CLEAR); Urobilinogen Urine Neg (Negative); pH Urine 6.5 (5-7)
[2020-12-02 15:32] LABS: Coronavirus Test Green County Not Detected
== END 2020-12-01 16:03 | disposition home or self-care (01) ==
PROVIDERS: Emergency Provider Family Medicine; PCP Nurse Practitioner Family
DX: M54.16 Radiculopathy, lumbar region (principal); K59.00 Constipation, unspecified; I10 Essential (primary) hypertension; Z86.16 Personal history of COVID-19; Z87.891 Personal history of nicotine dependence
CPT/HCPCS: 51798; 72131; 74018; 81003; 87635; 99283

== ENCOUNTER 2020-12-09 00:04 | Inpatient (IN) | payer BC, MEDICAID, SELFPAY ==
[2020-12-09 00:10] VITALS: BP 156/97; PULSE 100; RESP 20; TEMP 36.7; O2SAT 95; BMI 28.0
[2020-12-09] MEDS: haloperidol inj 5 mg/mL INJ 1 mL IM (00:43)
[2020-12-09] MEDS: LORazepam 2 mg/mL INJ 1 mL IM (00:43)
--- NOTE | 2020-12-09 00:44 | W.ED.PSYCH ---
HPI - Psych General: Chief Complaint: Psychiatric Symptoms Stated Complaint: MHE Time Seen by Provider: 12/09/20 00:18 Source: patient and police Mode of arrival: other Limitations: no limitations History of Present Illness: HPI Narrative: 30-year-old male who is here with police. Please officer states that he came into the station kary stating that he believed people were out to get him. Patient's likely under the influence of methamphetamine does have a history of methamphetamine abuse. He had told them that he believed people are out to get him instead put sand in his body and he had sand running those veins. He also states he had thought that he had holes placed in his well. Patient is acutely psychotic. Associated symptoms: Reports auditory hallucinations; Deny depression Review of Systems Const: Denies: fever(s), chills, body aches or change in appetite Eyes: Denies: blurry vision or eye discomfort ENMT: Denies: throat pain or dental pain Card: Denies: chest pain Resp: Denies: dyspnea GI: Denies: abdominal pain, nausea, vomiting or diarrhea : Denies: dysuria Musc: Denies: neck pain or back pain Skin/Breast: Denies: rash Neuro: Denies: headache(s) Psych: Reports: anxiety and auditory hallucinations; Denies: depression Jason/Lymph: Denies: easy bruising All/Imm: Denies: urticaria PFSH ED PFSH: Medical History (Updated 12/09/20 @ 03:12 by Pino Raines MD) GERD (gastroesophageal reflux disease) Hypertension Social History Smoking and tobacco status: former smoker Second hand smoke exposure: Yes Alcohol intake: current Alcohol intake frequency: few times a week Alcohol type: hard liquor Last alcohol use date: 04/14/20 Other details last alcohol use: drank until drunk Adopted: No Lives independently: No Household members: family Housing: Other Marital status: Single Highest education level completed: High School Graduate service: No Current occupational status: other History of recent travel: No Current gender identity: Male Physical Exam Const: COMMON NORMALS: no acute distress and patient oriented x3 GENERAL APPEARANCE: disheveled HENMT: COMMON NORMALS: normocephalic and atraumatic HEAD & SCALP: normocephalic and atraumatic Eye: COMMON NORMALS: Equal, round and reactive pupils present and EOMs intact bilaterally PUPIL: Yes Equal, round and reactive pupils present Neck/C-Spine: COMMON NORMALS: full ROM and supple Chest: COMMONS NORMALS: normal inspection of the chest and normal palpation of entire chest wall Resp: COMMON NORMALS: normal respiratory effort, No retractions, No use of accessory muscles and clear to auscultation bilaterally AUSCULTATION: clear to auscultation bilaterally Cardio: COMMON NORMALS: regular rate, regular rhythm and No murmurs present (Cardio) RATE: regular rate RHYTHM: regular rhythm GI: COMMON NORMALS: Normal to inspection, nondistended, normoactive bowel sounds present, Soft to palpation, non-tender and no masses PALPATION: Yes Soft to palpation Extremity: COMMON NORMALS: normal to inspection and full ROM Neuro: COMMON NORMALS: patient oriented x3, moves all extremities and no focal motor deficits Psych: COMMON NORMALS: cooperative ATTITUDE: Yes paranoid and Yes bizarre ACTIVITY/MOTOR BEHAVIOR: Yes psychomotor agitation, Yes hyperactivity and Yes disorganized behavior MOOD & AFFECT: Yes anxious THOUGHT PROCESS: disorganized THOUGHT CONTENT: Yes Hallucination(s) present Skin: COMMON NORMALS: no rashes or lesions noted and no wounds GENERAL SKIN EXAM: no rashes or lesions noted Course Vital Signs: Vital signs: Vital Signs Temperature 98.1 F 12/09/20 00:10 Pulse Rate 100 12/09/20 00:10 Respiratory Rate 20 H 12/09/20 00:10 Blood Pressure 156/97 12/09/20 00:10 Pulse Oximetry 95 12/09/20 00:10 MDM - Psych MDM Narrative: Medical decision making narrative: Patient presents with acute psychosis. Patient's placed on a 96-hour hold and was brought here by police. Patient is medically cleared I spoke to psychiatrist and will admit to the psychiatric unit. Lab Data: Labs: Lab Results 12/09/20 12/09/20 12/09/20 Range/Units 01:00 02:45 02:45 WBC 9.1 (4.0-10.0) 10^3/ uL RBC 5.35 H (4.1-5.3) 10^6/u L Hgb 14.9 (11.7-16.6) g/dL Hct 44.4 (42.0-52.0) % MCV 83.0 (80-94) fl MCH 27.9 L (28.0-34.0) pg MCHC 33.6 (30.0-36.0) g/dL RDW 14.1 (12.1-15.1) % Plt Count 446 H (130-400) 10^3/c mm MPV 9.5 (7.4-10.4) fL Neut % (Auto) 52.8 % Lymph % (Auto) 35.5 % Allen % (Auto) 10.6 % Eos % (Auto) 0.4 % Baso % (Auto) 0.4 % Neut # (Auto) 4.77 (1.8-7.7) 10^3/u L Lymph # (Auto) 3.2 (0.8-4.8) 10^3/u L Allen # (Auto) 1.0 H (0.2-0.9) 10^3/u L Eos # (Auto) 0.0 (0.0-0.8) 10^3/u L Baso # (Auto) 0.0 (0.0-0.1) 10^3/u L Nucleated RBC % (a uto) 0 % Nucleated RBCs # 0.0 /100WBC Sodium 133 L (136-145) mmol/L Potassium 4.2 (3.5-5.1) mmol/L Chloride 100 (98-107) mmol/L Carbon Dioxide 21 L (22-29) mmol/L Anion Gap 16.2 (5-19) BUN 14 (6-20) mg/dL Creatinine 0.8 (0.7-1.2) mg/dL GFR Calculation 112.8 (90-130) mL/min Glucose 102 (65-115) mg/dL Calculated Osmolal ity 277 L (285-295) mOsm/k g Calcium 9.3 (8.5-10.5) mg/dL Total Bilirubin 0.7 (0.15-1.2) mg/dL AST 20 (0-40) U/L ALT 23 (0-41) U/L Alkaline Phosphata se 80 (40-130) IU/L Total Protein 6.9 (6.6-8.7) g/dL Albumin 4.3 (3.5-5.2) g/dL Globulin 2.6 (1.3-4.6) g/dL Salicylates < 0.3 L (3-10) mg/dL Urine Opiates Scre en Negative (Negative) ng/mL Acetaminophen < 5.0 L (10-30) ug/mL Ur Barbiturates Sc reen Negative (Negative) ng/mL Ur Phencyclidine S crn Negative (Negative) ng/mL Ur Amphetamines Sc reen Negative (Negative) ng/mL U Benzodiazepines Scrn Negative (Negative) ng/mL Urine Cocaine Scre en Negative (Negative) ng/mL U Marijuana (THC) Screen Negative (Negative) ng/mL Ethyl Alcohol < 10 (0-10) mg/dL Discharge Plan Discharge Patient Disposition: Admitted As Inpatient Clinical Impression: Acute psychosis Condition: Stable Coding Level of Care Code ED Business Intelligence Etl Developer for Sarah Carrillo Exam Comprehensive
[2020-12-09 01:21] LABS: Amphetamines Screen Urine Negative (Negative); Barbiturates Screen Urine Negative (Negative); Benzodiazepines Screen Urine Negative (Negative); Cocaine Screen Urine Negative (Negative); Opiate Screen Urine Negative (Negative); PCP Screen Urine Negative (Negative); THC Screen Urine Negative (Negative)
--- NOTE | 2020-12-09 01:43 | PC.NURSE ---
patient belongings placed in locker #1
[2020-12-09] MEDS: OLANZapine 10 mg ODT 20 MG PO (01:56)
[2020-12-09 02:48] LABS: Basophils % 0.4 %; Eosinophils % 0.4 %; Hematocrit 44.4 % (42.0-52.0); Hemoglobin 14.9 g/dL (11.7-16.6); Lymphocytes # 3.2 10^3/uL (0.8-4.8); Lymphocytes % 35.5 %; Mean Corpuscular HGB Conc 33.6 g/dL (30.0-36.0); Mean Corpuscular Hemoglobin 27.9 pg (28.0-34.0); Mean Platelet Volume 9.5 fL (7.4-10.4); Monocytes % 10.6 %; Neutrophils # 4.77 10^3/uL (1.8-7.7); Neutrophils % 52.8 %; Nucleated Red Blood Cells % 0 %; Platelet Count 446 10^3/cmm (130-400); Red Blood Count 5.35 10^6/uL (4.1-5.3); Red Cell Distribution Width 14.1 % (12.1-15.1); White Blood Count 9.1 10^3/uL (4.0-10.0)
[2020-12-09 03:05] LABS: Alanine Aminotransferase 23 U/L (0-41); Albumin Level 4.3 g/dL (3.5-5.2); Alkaline Phosphatase 80 IU/L (40-130); Anion Gap 16.2 (5-19); Aspartate Amino Transferase 20 U/L (0-40); Blood Urea Nitrogen 14 mg/dL (6-20); Calcium 9.3 mg/dL (8.5-10.5); Carbon Dioxide 21 mmol/L (22-29); Chloride 100 mmol/L (98-107); Globulin 2.6 g/dL (1.3-4.6); Glomerular Filtration Rate 112.8 mL/min (90-130); Glucose 102 mg/dL (65-115); Osmolality Calculated 277 mOsm/kg (285-295); Potassium 4.2 mmol/L (3.5-5.1); Sodium 133 mmol/L (136-145); Total Bilirubin 0.7 mg/dL (0.15-1.2); Total Protein 6.9 g/dL (6.6-8.7)
[2020-12-09 03:07] LABS: Acetaminophen < 5.0 ug/mL (10-30); Alcohol Level < 10 mg/dL (0-10); Salicylate < 0.3 mg/dL (3-10)
[2020-12-09 04:15] VITALS: BP 142/88; PULSE 92; RESP 20; TEMP 36.8; O2SAT 99
[2020-12-09 05:20] VITALS: BP 107/68; PULSE 55; RESP 16; TEMP 36.8; O2SAT 97
[2020-12-09 05:34] VITALS: BP 142/88; PULSE 92; RESP 20; O2SAT 99
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
[2020-12-09 14:00] VITALS: RESP 20
[2020-12-09 22:00] VITALS: BP 142/88; PULSE 92; RESP 20; TEMP 36.8; O2SAT 99
[2020-12-10 05:27] VITALS: BP 142/88; PULSE 92; RESP 20; TEMP 36.8; O2SAT 99
[2020-12-10 06:15] VITALS: RESP 16
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
--- NOTE | 2020-12-10 12:43 | PC.NURSE ---
Patient off unit for stat CT with staff and security
--- NOTE | 2020-12-10 12:45 | PC.NURSE ---
Now Ativan Patient given 1 mg ativan IM per Dr Pate for his lock jaw .
[2020-12-10] MEDS: LORazepam 2 mg/mL INJ 1 mL 1 MG IM (13:03)
[2020-12-10] MEDS: LORazepam 1 mg Tablet PO (13:27)
[2020-12-10 13:49] VITALS: RESP 19
[2020-12-10] MEDS: oxyCODONE 5 mg IR Tab/Cap 20 MG PO ×2 (13:49→20:10)
[2020-12-10 14:00] VITALS: BP 143/100; PULSE 115; RESP 19; TEMP 36.5; O2SAT 95
[2020-12-10 14:27] LABS: Basophils # 0.1 10^3/uL (0.0-0.1); Basophils % 0.5 %; Eosinophils # 0.1 10^3/uL (0.0-0.8); Eosinophils % 0.7 %; Hematocrit 49.3 % (42.0-52.0); Hemoglobin 16.2 g/dL (11.7-16.6); Lymphocytes # 2.4 10^3/uL (0.8-4.8); Lymphocytes % 25.1 %; Mean Corpuscular HGB Conc 32.9 g/dL (30.0-36.0); Mean Corpuscular Hemoglobin 27.9 pg (28.0-34.0); Mean Corpuscular Volume 84.9 fl (80-94); Mean Platelet Volume 9.7 fL (7.4-10.4); Monocytes # 0.7 10^3/uL (0.2-0.9); Monocytes % 7.4 %; Neutrophils # 6.29 10^3/uL (1.8-7.7); Neutrophils % 65.9 %; Nucleated Red Blood Cells % 0 %; Platelet Count 525 10^3/cmm (130-400); Red Blood Count 5.81 10^6/uL (4.1-5.3); Red Cell Distribution Width 14.4 % (12.1-15.1); White Blood Count 9.6 10^3/uL (4.0-10.0)
[2020-12-10] MEDS: benztropine 1 mg Tablet PO (14:31)
[2020-12-10 14:56] LABS: Magnesium 2.2 mg/dL (1.7-2.3)
[2020-12-10] MEDS: iohexol 300 mg/mL 100 mL Btl IV (15:20)
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
[2020-12-10 15:30] LABS: Erythrocyte Sedimentation Rate 5 mm/hr (0-10)
[2020-12-10] MEDS: pregabalin 150 mg Capsule PO ×2 (15:45→20:10)
[2020-12-10] MEDS: nicotine 21 mg Patch 1 PATCH TRANSDERMA (15:45)
[2020-12-10 15:59] LABS: Alanine Aminotransferase 24 U/L (0-41); Albumin Level 4.5 g/dL (3.5-5.2); Alkaline Phosphatase 91 IU/L (40-130); Anion Gap 17.6 (5-19); Aspartate Amino Transferase 21 U/L (0-40); Blood Urea Nitrogen 15 mg/dL (6-20); C Reactive Protein 2.5 mg/L (0.0-4.9); Calcium 9.9 mg/dL (8.5-10.5); Carbon Dioxide 25 mmol/L (22-29); Chloride 103 mmol/L (98-107); Creatine Phosphokinase 264 U/L (39-308); Globulin 3.1 g/dL (1.3-4.6); Glomerular Filtration Rate 98.4 mL/min (90-130); Glucose 92 mg/dL (65-115); Osmolality Calculated 292 mOsm/kg (285-295); Potassium 4.6 mmol/L (3.5-5.1); Sodium 141 mmol/L (136-145); Total Bilirubin 0.3 mg/dL (0.15-1.2); Total Protein 7.6 g/dL (6.6-8.7)
[2020-12-10 16:29] LABS: Procalcitonin 0.03 ng/mL (0-0.5)
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
[2020-12-10] MEDS: sulfamethoxazole-trimeth DS 160-800 mg Tablet 1 TAB PO (17:39)
[2020-12-10 20:10] VITALS: RESP 14
[2020-12-10] MEDS: metoprolol tartrate 25 mg Tablet 12.5 MG PO (21:40)
[2020-12-10] MEDS: OLANZapine 5 mg ODT PO (21:54)
[2020-12-10 22:00] VITALS: BP 142/97; PULSE 121; RESP 18; TEMP 37; O2SAT 97
[2020-12-10] MEDS: trazodone 50 mg Tablet PO (23:53)
[2020-12-11] VITALS (7 sets, daily range): BP systolic 107–117; BP diastolic 75–78; PULSE 79–83; RESP 17–20; TEMP 36.1–36.7; O2SAT 97–98
[2020-12-11] MEDS: famotidine 20 mg Tablet 40 MG PO (07:59)
[2020-12-11] MEDS: metoprolol tartrate 25 mg Tablet 12.5 MG PO ×2 (08:00→21:06)
[2020-12-11] MEDS: pregabalin 150 mg Capsule PO ×3 (08:00→21:06)
[2020-12-11] MEDS: losartan 50 mg Tablet 25 MG PO (08:00)
[2020-12-11] MEDS: sulfamethoxazole-trimeth DS 160-800 mg Tablet 1 TAB PO ×2 (08:00→16:57)
[2020-12-11] MEDS: oxyCODONE 5 mg IR Tab/Cap 20 MG PO ×3 (08:01→21:05)
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
[2020-12-11] MEDS: nicotine 21 mg Patch 1 PATCH TRANSDERMA (09:49)
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
[2020-12-11] MEDS: trazodone 50 mg Tablet PO (21:05)
[2020-12-11] MEDS: prazosin 1 mg Capsule PO (21:05)
--- NOTE | 2020-12-11 21:10 | PC.NURSE ---
pt requested sleep med with HS meds, Trazodone 50mg po given.
--- NOTE | 2020-12-11 23:00 | PC.NURSE ---
pt resting quietly with both eyes closed
--- NOTE | 2020-12-12 01:08 | PC.NURSE ---
pt resting quietly
[2020-12-12 06:00] VITALS: BP 109/74; PULSE 70; RESP 17; TEMP 36.8; O2SAT 99
[2020-12-12] MEDS: nicotine 21 mg Patch 1 PATCH TRANSDERMA (07:58)
[2020-12-12] MEDS: hyDROXYzine 25 mg Capsule 50 MG PO (07:59)
[2020-12-12] MEDS: cyclobenzaprine 10 mg Tablet PO ×2 (07:59→14:37)
[2020-12-12] MEDS: metoprolol tartrate 25 mg Tablet 12.5 MG PO ×2 (07:59→20:55)
[2020-12-12] MEDS: sulfamethoxazole-trimeth DS 160-800 mg Tablet 1 TAB PO ×2 (07:59→18:16)
[2020-12-12] MEDS: oxyCODONE 5 mg IR Tab/Cap 20 MG PO ×3 (07:59→20:53)
[2020-12-12] MEDS: pregabalin 150 mg Capsule PO ×3 (07:59→20:55)
[2020-12-12] MEDS: famotidine 20 mg Tablet 40 MG PO (08:01)
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
--- NOTE | 2020-12-12 13:19 | CTR_ITS ---
PROCEDURE INFORMATION: Exam: CT Head Without Contrast Exam date and time: 12/12/2020 1:19 PM Age: 30 years old Clinical indication: Altered mental status/memory loss; Prior surgery; Surgery date: 6+ months; Surgery type: Facial; Patient HX: New onset psychosis TECHNIQUE: Imaging protocol: Computed tomography of the head without contrast. Radiation optimization: All CT scans at this facility use at least one of these dose optimization techniques: automated exposure control; mA and/or kV adjustment per patient size (includes targeted exams where dose is matched to clinical indication); or iterative reconstruction. COMPARISON: CT head wo con* [id number] 11/06/2017 1:13 AM RADIATION DOSE METRICS: Total DLP (mGy-cm): 850.22 FINDINGS: Brain: Normal. No hemorrhage. Unremarkable white matter. No mass effect. Cerebral ventricles: No ventriculomegaly. Paranasal sinuses: Chronic appearing defect along the left lamina papyracea suggestive of old trauma or sinus infection. No acute findings. Mastoid air cells: Visualized mastoid air cells are well aerated. Bones/joints: Unremarkable. No acute fracture. Soft tissues: Unremarkable. CT/CT head wo con* [id number] IMPRESSION: No acute intracranial abnormality. Radiation Dose CTDIVOL = (mGy): DLP = 850.22 (mGy-cm)
[2020-12-12 14:00] VITALS: BP 121/86; PULSE 82; RESP 16; TEMP 36.7; O2SAT 98
[2020-12-12 20:53] VITALS: RESP 20
[2020-12-12] MEDS: prazosin 1 mg Capsule 2 MG PO (20:55)
[2020-12-12 21:02] VITALS: BP 127/85; PULSE 76; RESP 18; TEMP 36.9; O2SAT 97
[2020-12-13 06:00] VITALS: BP 116/75; PULSE 82; RESP 18; TEMP 37; O2SAT 99
[2020-12-13 08:15] VITALS: RESP 18
[2020-12-13] MEDS: oxyCODONE 5 mg IR Tab/Cap 20 MG PO ×3 (08:15→21:35)
[2020-12-13] MEDS: metoprolol tartrate 25 mg Tablet 12.5 MG PO ×2 (08:15→21:35)
[2020-12-13] MEDS: pregabalin 150 mg Capsule PO ×3 (08:15→21:34)
[2020-12-13] MEDS: famotidine 20 mg Tablet 40 MG PO (08:15)
[2020-12-13] MEDS: sulfamethoxazole-trimeth DS 160-800 mg Tablet 1 TAB PO ×2 (08:15→16:57)
[2020-12-13 13:24] VITALS: RESP 18
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
[2020-12-13 14:00] VITALS: BP 125/84; PULSE 79; RESP 16; TEMP 36.2; O2SAT 96
[2020-12-13] MEDS: OLANZapine 5 mg ODT PO (15:53)
[2020-12-13] MEDS: nicotine 21 mg Patch 1 PATCH TRANSDERMA (17:02)
[2020-12-13] MEDS: alum-mag-hydroxide-sime 30 mL UDC PO (21:34)
[2020-12-13] MEDS: prazosin 1 mg Capsule 2 MG PO (21:35)
[2020-12-14 06:00] VITALS: BP 115/81; PULSE 73; RESP 18; TEMP 36.7; O2SAT 98
[2020-12-14 08:52] VITALS: BP 115/81; PULSE 73; RESP 18; TEMP 36.7; O2SAT 98
[2020-12-14] MEDS: sulfamethoxazole-trimeth DS 160-800 mg Tablet 1 TAB PO (08:55)
[2020-12-14] MEDS: pregabalin 150 mg Capsule PO (08:55)
[2020-12-14] MEDS: famotidine 20 mg Tablet 40 MG PO (08:55)
[2020-12-14 08:56] VITALS: RESP 18
[2020-12-14] MEDS: metoprolol tartrate 25 mg Tablet 12.5 MG PO (08:56)
[2020-12-14] MEDS: oxyCODONE 5 mg IR Tab/Cap 20 MG PO (08:56)
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
== END 2020-12-14 10:45 | disposition home or self-care (01) | DRG 885 ==
LOC: ER 03:12 → NP 04:52
PROVIDERS: Family Medicine; Admitting Provider Psychiatry & Neurology Child & Adolescent Psychiatry; Emergency Provider Emergency Medicine; PCP Nurse Practitioner Family; Visit Provider Psychiatry & Neurology Child & Adolescent Psychiatry
DX: F23 Brief psychotic disorder (principal); F10.180 Alcohol abuse with alcohol-induced anxiety disorder; F40.01 Agoraphobia with panic disorder; F32.9 Major depressive disorder, single episode, unspecified; F43.10 Post-traumatic stress disorder, unspecified; F51.5 Nightmare disorder; G47.00 Insomnia, unspecified; F41.9 Anxiety disorder, unspecified; R68.84 Jaw pain; R25.2 Cramp and spasm; F15.180 Other stimulant abuse with stimulant-induced anxiety disorder; G89.29 Other chronic pain; I10 Essential (primary) hypertension; K21.9 Gastro-esophageal reflux disease without esophagitis; Z87.828 Personal history of other (healed) physical injury and trauma; Z87.891 Personal history of nicotine dependence
CPT/HCPCS: 70450; 70491; 80053; 80306; 80307; 82550; 83735; 84145; 85025; 85651; 86140; 87040; 92507; 92522; 92610; 96372; 99285; J1630; J2060; Q9967

== ENCOUNTER 2021-01-25 15:32 | Inpatient (IN) | payer BC, MEDICAID, SELFPAY ==
--- NOTE | 2021-01-25 15:34 | W.ED.GENADLT ---
HPI - General Adult General: Chief complaint: Psychiatric Symptoms Stated complaint: SI; THOUGHTS OF SELF HARM Time Seen by Provider: 01/25/21 15:34 History of Present Illness: HPI narrative: HPI: [30]yo patient w/ hx of depression BIBA for worsening depression, SI and PTSD outbreak. On arrival, the patient is AAOx3 and cooperative with my evaluation. No focal complaints of chest pain, shortness of breath, palpitations, N/V, focal GI/ complaints. Denies HI. No complaints of hallucinations. Onset: chronic Duration: ongoing Location: home Severity: severe Review of Systems Narrative: Constitutional: No fever, no chills. HEENT: No vision changes CV: No chest pain, no palpitations PULM: No productive cough, no dyspnea. GI: No abdominal pain, no N/V/D. : No dysuria MSKEL: No muscle pain SKIN: No new rashes, no lesions. NEURO: No headache, no focal weakness. HEME: No visible bruises PSYCH: +depressed mood, +SI PFSH ED PFSH: Medical History Anxiety GERD (gastroesophageal reflux disease) Hypertension Social History Smoking and tobacco status: current every day smoker Second hand smoke exposure: Yes Alcohol intake: former Last alcohol use date: 04/14/20 Other details last alcohol use: drank until drunk Adopted: No Lives independently: No Household members: family Housing: Other Marital status: Single Highest education level completed: High School Graduate service: No Current occupational status: other History of recent travel: No Current gender identity: Male Physical Exam Narrative: EXAM NARRATIVE: Head: Atraumatic Eyes: PERRL, conjunctiva without injection, eyes tracking ENT: Mucous membrane moist NECK: Supple without lymphadenopathy LUNGS: LCTAB CV: RRR ABDOMEN: Soft, nontender EXTREMITY: Normal ROM SKIN: No rash or erythema NEURO: Awake and alert. No focal weakness PSYCH: Cooperative mood and affect. Course Vital Signs: Vital signs: Vital Signs Temperature 98.0 F 01/27/21 20:04 Pulse Rate 59 L 01/27/21 20:04 Respiratory Rate 17 01/27/21 20:04 Blood Pressure 131/85 01/27/21 20:04 Pulse Oximetry 98 01/27/21 20:04 MDM - General Adult MDM Narrative: Medical decision making narrative: [30]yo patient w/ hx of PTSD, depression presenting for SI/depression. HDS, exam within normal limit Thoughts are linear and organized, and the patient has no AH/VH, or HI. Clinically the patient displays no overt toxidrome; they are well appearing, with low suspicion for toxic ingestion given history and exam. Symptoms unlikely 2/2 anemia, hypothyroidism, infection, or ICH. Workup: CBC, CMP, Lipase, salicylate/tylenol, UDS Lab findings: wnl, +benzo in urine On reassessment, labs and workup wnl. Patient is hemodynamically stable with no acute medical complaints. Case discussed with psychiatric provider Dr. Campos at [facility] psych inpatient with recommendation for admission Disposition: Psych Lab Data: Labs: Lab Results 01/25/21 01/25/21 01/25/21 16:22 16:22 16:45 WBC 7.4 10^3/uL 10^3/ uL (4.0-10.0) RBC 5.07 10^6/uL 10^6 /uL (4.1-5.3) Hgb 14.7 g/dL g/dL (11.7-16.6) Hct 42.4 % % (42.0-52.0) MCV 83.6 fl fl (80-94) MCH 29.0 pg pg (28.0-34.0) MCHC 34.7 g/dL g/dL (30.0-36.0) RDW 15.1 % % (12.1-15.1) Plt Count 386 10^3/cmm 10^3 /cmm (130-400) MPV 10.1 fL fL (7.4-10.4) Neut % (Auto) 55.9 % % Lymph % (Auto) 33.8 % % Vermilion % (Auto) 7.9 % % Eos % (Auto) 1.5 % % Baso % (Auto) 0.5 % % Neut # (Auto) 4.11 10^3/uL 10^3 /uL (1.8-7.7) Lymph # (Auto) 2.5 10^3/uL 10^3/ uL (0.8-4.8) Vermilion # (Auto) 0.6 10^3/uL 10^3/ uL (0.2-0.9) Eos # (Auto) 0.1 10^3/uL 10^3/ uL (0.0-0.8) Baso # (Auto) 0.0 10^3/uL 10^3/ uL (0.0-0.1) Nucleated RBC % (a uto) 0 % % Nucleated RBCs # 0.0 /100WBC /100W BC Sodium 142 mmol/L mmol/L (136-145) Potassium 3.9 mmol/L mmol/L (3.5-5.1) Chloride 105 mmol/L mmol/L (98-107) Carbon Dioxide 24 mmol/L mmol/L (22-29) Anion Gap 16.9 (5-19) BUN 8 mg/dL mg/dL (6-20) Creatinine 0.9 mg/dL mg/dL (0.7-1.2) GFR Calculation 98.4 mL/min mL/mi n (90-130) Glucose 89 mg/dL mg/dL (65-115) Calculated Osmolal ity 292 mOsm/kg mOsm/ kg (285-295) Calcium 9.1 mg/dL mg/dL (8.5-10.5) Salicylates < 0.3 mg/dL L mg/ dL (3-10) Urine Opiates Scre en Negative ng/mL ng /mL (Negative) Acetaminophen < 5.0 ug/mL L ug/ mL (10-30) Ur Barbiturates Sc reen Negative ng/mL ng /mL (Negative) Ur Phencyclidine S crn Negative ng/mL ng /mL (Negative) Ur Amphetamines Sc reen Negative ng/mL ng /mL (Negative) U Benzodiazepines Scrn Positive ng/mL H ng/mL (Negative) Urine Cocaine Scre en Negative ng/mL ng /mL (Negative) U Marijuana (THC) Screen Negative ng/mL ng /mL (Negative) Discharge Plan Discharge Patient Disposition: Admitted As Inpatient Admit Provider: José Miguel Campos Clinical Impression: Suicide ideation, Depression Condition: Stable Coding Level of Care Code ED Commissioning Engineer for Sarah Carrillo
[2021-01-25 15:56] VITALS: BP 142/83; PULSE 82; RESP 18; TEMP 36.5; O2SAT 97; BMI 29.5
[2021-01-25 16:50] LABS: Anion Gap 16.9 (5-19); Blood Urea Nitrogen 8 mg/dL (6-20); Calcium 9.1 mg/dL (8.5-10.5); Carbon Dioxide 24 mmol/L (22-29); Chloride 105 mmol/L (98-107); Creatinine Clr Calc Pharmacy 132.3933; Glomerular Filtration Rate 98.4 mL/min (90-130); Glucose 89 mg/dL (65-115); Osmolality Calculated 292 mOsm/kg (285-295); Potassium 3.9 mmol/L (3.5-5.1); Sodium 142 mmol/L (136-145)
[2021-01-25 16:51] LABS: Acetaminophen < 5.0 ug/mL (10-30); Salicylate < 0.3 mg/dL (3-10)
[2021-01-25 17:02] LABS: Basophils % 0.5 %; Eosinophils # 0.1 10^3/uL (0.0-0.8); Eosinophils % 1.5 %; Hematocrit 42.4 % (42.0-52.0); Hemoglobin 14.7 g/dL (11.7-16.6); Lymphocytes # 2.5 10^3/uL (0.8-4.8); Lymphocytes % 33.8 %; Mean Corpuscular HGB Conc 34.7 g/dL (30.0-36.0); Mean Corpuscular Volume 83.6 fl (80-94); Mean Platelet Volume 10.1 fL (7.4-10.4); Monocytes # 0.6 10^3/uL (0.2-0.9); Monocytes % 7.9 %; Neutrophils # 4.11 10^3/uL (1.8-7.7); Neutrophils % 55.9 %; Nucleated Red Blood Cells % 0 %; Platelet Count 386 10^3/cmm (130-400); Red Blood Count 5.07 10^6/uL (4.1-5.3); Red Cell Distribution Width 15.1 % (12.1-15.1); White Blood Count 7.4 10^3/uL (4.0-10.0)
[2021-01-25 17:19] LABS: Amphetamines Screen Urine Negative (Negative); Barbiturates Screen Urine Negative (Negative); Benzodiazepines Screen Urine Positive (Negative); Cocaine Screen Urine Negative (Negative); Opiate Screen Urine Negative (Negative); PCP Screen Urine Negative (Negative); THC Screen Urine Negative (Negative)
[2021-01-25 18:06] VITALS: PULSE 80; RESP 15; O2SAT 97
[2021-01-25 18:16] VITALS: BP 154/107; PULSE 74; RESP 18; TEMP 36.5; O2SAT 98
[2021-01-25] MEDS: hyDROXYzine 25 mg Capsule 50 MG PO (20:34)
[2021-01-25] MEDS: acetaminophen 325 mg Tablet 650 MG PO (20:34)
[2021-01-25] MEDS: trazodone 50 mg Tablet PO (20:35)
[2021-01-25 20:36] VITALS: BP 140/82; PULSE 72; RESP 17; TEMP 36.7; O2SAT 98
[2021-01-26 06:00] VITALS: BP 146/106; PULSE 59; RESP 18; TEMP 36.8; O2SAT 98
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
[2021-01-26] MEDS: nicotine 21 mg Patch 1 PATCH TRANSDERMA (10:39)
--- NOTE | 2021-01-26 12:05 | NPU.GN ---
[facility] Unit Group Topic:Coping Skills Bingo/ Cross word puzzle General Mood of Group: Cosme did attend and participate in group therapy this morning. Cosme was quiet and stayed to himself, but did participate.
[2021-01-26 14:00] VITALS: BP 144/99; PULSE 72; RESP 18; TEMP 36.4; O2SAT 97
[2021-01-26] MEDS: metoprolol tartrate 25 mg Tablet 12.5 MG PO ×2 (16:03→21:39)
[2021-01-26] MEDS: OLANZapine 5 mg ODT PO (17:42)
[2021-01-26] MEDS: pantoprazole DR 40 mg Tablet PO (17:42)
[2021-01-26 19:54] VITALS: BP 154/106; PULSE 66; RESP 17; TEMP 36.7; O2SAT 99
[2021-01-26] MEDS: prazosin 1 mg Capsule 2 MG PO (21:39)
[2021-01-26] MEDS: pregabalin 150 mg Capsule PO (21:40)
[2021-01-26] MEDS: OLANZapine 5 mg TABLET PO (21:40)
[2021-01-27 06:00] VITALS: BP 115/78; PULSE 65; RESP 19; TEMP 36.8; O2SAT 97
[2021-01-27 08:29] VITALS: BP 136/88; PULSE 86; RESP 18
[2021-01-27] MEDS: pregabalin 150 mg Capsule PO ×3 (08:30→23:31)
[2021-01-27] MEDS: acetaminophen 325 mg Tablet 650 MG PO ×2 (08:30→14:01)
[2021-01-27] MEDS: pantoprazole DR 40 mg Tablet PO ×2 (08:31→20:05)
[2021-01-27] MEDS: metoprolol tartrate 25 mg Tablet 12.5 MG PO ×2 (08:31→20:05)
--- NOTE | 2021-01-27 12:44 | NPU.GN ---
[facility] Unit Group Topic:Coping Kills Checklist General Mood of Group: Cosme did not attend group today, as he reported to this financial writer that he was in pain.
[2021-01-27 14:00] VITALS: BP 140/97; PULSE 68; RESP 20; TEMP 36.5; O2SAT 97
[2021-01-27] MEDS: nicotine 2 mg Gum BUCCAL (16:55)
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
[2021-01-27 20:04] VITALS: BP 131/85; PULSE 59; RESP 17; TEMP 36.7; O2SAT 98
[2021-01-27] MEDS: prazosin 1 mg Capsule 3 MG PO (20:04)
[2021-01-27] MEDS: OLANZapine 5 mg TABLET PO (20:05)
[2021-01-27] MEDS: trazodone 50 mg Tablet PO (20:12)
--- NOTE | 2021-01-28 04:42 | PC.NURSE ---
EVENING- Patient calm and cooperative. Has no complaints voiced. Denies any SI/HI or AVH at this time. Compliant with care. Has appropriate interaction with peers noted. NIGHT- In bed resting with eyes closed throughout night. No complaints voiced. No distress noted. PRNs- Requested and received PRN Trazodone at 2012 to good effect.
[2021-01-28 05:57] VITALS: BP 124/85; PULSE 71; RESP 17; TEMP 36.5; O2SAT 99
[2021-01-28] MEDS: pregabalin 150 mg Capsule PO (08:34)
[2021-01-28] MEDS: pantoprazole DR 40 mg Tablet PO (08:36)
[2021-01-28] MEDS: metoprolol tartrate 25 mg Tablet 12.5 MG PO (08:36)
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
[2021-01-28 09:33] VITALS: BP 124/85; PULSE 71; RESP 17; TEMP 36.5; O2SAT 99
== END 2021-01-28 09:41 | disposition home or self-care (01) | DRG 881 ==
LOC: ER 16:34 → NP 01-26 13:33
PROVIDERS: Admitting Provider Psychiatry & Neurology Psychiatry; Emergency Provider Emergency Medicine; PCP Nurse Practitioner Family; Visit Provider Psychiatry & Neurology Child & Adolescent Psychiatry
DX: F32.A Depression, unspecified (principal); R45.851 Suicidal ideations; F43.10 Post-traumatic stress disorder, unspecified; F41.9 Anxiety disorder, unspecified; K21.9 Gastro-esophageal reflux disease without esophagitis; I10 Essential (primary) hypertension; F17.210 Nicotine dependence, cigarettes, uncomplicated; F10.129 Alcohol abuse with intoxication, unspecified; F40.01 Agoraphobia with panic disorder
CPT/HCPCS: 80048; 80306; 80307; 85025; 97150; 97165; 99285

== ENCOUNTER 2021-02-15 06:00 | Outpatient (RCR) | payer BC, SELFPAY | END 2021-03-08 23:59 | disposition home or self-care (01) | LOC: TST 06:00 | PROVIDERS: PCP Nurse Practitioner Family; Referring Provider Family Medicine; Visit Provider Family Medicine | DX: S02.609D Fracture of mandible, unspecified, subsequent encounter for fracture with routine healing (principal); X58.XXXD Exposure to other specified factors, subsequent encounter | CPT/HCPCS: 92507; 92523; 92526; 92610 ==

== ENCOUNTER 2021-04-22 11:37 | Observation (INO) | payer BC, SELFPAY ==
[2021-04-22] VITALS (9 sets, daily range): BP systolic 139–164; BP diastolic 96–103; PULSE 76–96; RESP 16–22; TEMP 36.6–37.2; O2SAT 97–98
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
[2021-04-22] MEDS: iohexol 300 mg/mL 100 mL Btl IV (13:37)
[2021-04-22 13:46] LABS: Basophils % 0.2 %; Eosinophils # 0.2 10^3/uL (0.0-0.8); Eosinophils % 1.2 %; Hemoglobin 14.5 g/dL (11.7-16.6); Lymphocytes # 2.4 10^3/uL (0.8-4.8); Lymphocytes % 19.1 %; Mean Corpuscular Hemoglobin 28.8 pg (28.0-34.0); Mean Corpuscular Volume 87.3 fl (80-94); Mean Platelet Volume 9.8 fL (7.4-10.4); Monocytes # 1.1 10^3/uL (0.2-0.9); Monocytes % 8.7 %; Neutrophils # 8.96 10^3/uL (1.8-7.7); Neutrophils % 70.5 %; Nucleated Red Blood Cells % 0 %; Platelet Count 393 10^3/cmm (130-400); Red Blood Count 5.04 10^6/uL (4.1-5.3); Red Cell Distribution Width 13.4 % (12.1-15.1); White Blood Count 12.7 10^3/uL (4.0-10.0)
[2021-04-22] MEDS: ketorolac 30 mg/mL INJ IM (13:46)
[2021-04-22] MEDS: ampicillin-sulbactam 3 GM in sodium chloride 0.9% (plus) 50 ML IV ×2 (14:46→23:31)
[2021-04-22] MEDS: morphine 4 mg/mL SDV 1 mL 2 MG IVP (15:27)
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
[2021-04-22 17:23] LABS: Procalcitonin 0.08 ng/mL (0-0.5)
[2021-04-22 17:52] LABS: Erythrocyte Sedimentation Rate 11 mm/hr (0-10)
[2021-04-22] MEDS: HYDROmorphone 1 mg/mL INJ 1 mL 0.2 MG IVP (20:10)
[2021-04-22] MEDS: chlorhexidine gluconate 0.12% Btl 473 mL 15 ML MUCOUS MEM (20:15)
[2021-04-22] MEDS: pregabalin 150 mg Capsule PO (20:40)
[2021-04-22] MEDS: thiamine 100 mg Tablet PO (20:40)
[2021-04-22] MEDS: ibuprofen 600 mg Tablet PO (21:48)
[2021-04-22] MEDS: bacitracin ointment 28 gm 1 APPLIC TOPICAL (21:48)
[2021-04-22] MEDS: cloNIDine 0.1 mg Tablet PO (22:10)
[2021-04-22] MEDS: oxyCODONE 5 mg IR Tab/Cap PO (22:10)
[2021-04-22] MEDS: HYDROmorphone 1 mg/mL INJ 1 mL 0.5 MG IVP (23:24)
[2021-04-23] VITALS (8 sets, daily range): BP systolic 140–150; BP diastolic 65–100; PULSE 64–70; RESP 18–22; TEMP 36.3; O2SAT 95–98
[2021-04-23] MEDS: piperacillin-tazobactam 3.375 GM in sodium chloride 0.9% (plus) 50 ML IV ×2 (00:07→07:41)
[2021-04-23] MEDS: HYDROmorphone 1 mg/mL INJ 1 mL 0.5 MG IVP ×2 (03:31→07:42)
[2021-04-23] MEDS: oxyCODONE 5 mg IR Tab/Cap PO ×2 (04:04→08:08)
[2021-04-23 04:14] LABS: Basophils % 0.4 %; Eosinophils # 0.2 10^3/uL (0.0-0.8); Eosinophils % 2.1 %; Hematocrit 42.8 % (42.0-52.0); Hemoglobin 14.1 g/dL (11.7-16.6); Lymphocytes # 2.9 10^3/uL (0.8-4.8); Lymphocytes % 35.8 %; Mean Corpuscular HGB Conc 32.9 g/dL (30.0-36.0); Mean Corpuscular Hemoglobin 29.1 pg (28.0-34.0); Mean Corpuscular Volume 88.2 fl (80-94); Mean Platelet Volume 10.4 fL (7.4-10.4); Monocytes # 0.7 10^3/uL (0.2-0.9); Monocytes % 8.6 %; Neutrophils # 4.32 10^3/uL (1.8-7.7); Nucleated Red Blood Cells % 0 %; Platelet Count 359 10^3/cmm (130-400); Red Blood Count 4.85 10^6/uL (4.1-5.3); Red Cell Distribution Width 13.3 % (12.1-15.1); White Blood Count 8.2 10^3/uL (4.0-10.0)
[2021-04-23 05:38] LABS: Blood Urea Nitrogen 12 mg/dL (6-20); Carbon Dioxide 21 mmol/L (22-29); Chloride 106 mmol/L (98-107); Glomerular Filtration Rate 112.8 mL/min (90-130); Glucose 125 mg/dL (65-115); Osmolality Calculated 291 mOsm/kg (285-295); Sodium 140 mmol/L (136-145)
--- NOTE | 2021-04-23 05:56 | PC.PHAR ---
Pharmacokinetic dosing service Date: 04/23/21 Time: 0600 Objective: Patient: Cosme Lux Floor: 263-1 Age: 30 yo Serum creatinine: 0.8 mg/dL Height: 69.0 Inches Weight (kg): 99.79 Diagnosis: Relevant medical/social history: Cultures and sensitivities: Other labs: Assessment: IBW (kg): 70.70 Dosing wt(kg): 99.79 Estimated Creatinine clearance (ml/min): 130 Clearance limited to 130 ml/min to reduce risk of overdosing. CRCL method: Cockcroft and Gault using ibw(default). Drug selected: Vancomycin Loading dose (mg): 0 Vd (liters): 89.8 (factor used: 0.9 L/kg) Teofilo (hr-1): 0.112 Half life (hrs): 6.19 Recommended dose: 1500 mg Interval: 8 hrs Infusion time (hrs): 1.5 Predicted peak (mcg/mL): 26.0 Predicted trough (mcg/mL): 12.55 Total body weight is being used for vancomycin dosing. Renal function is stable [ ] /unstable [ ] Recommendations: Give Vancomycin 1500 mg q 8 hrs with an expected Cpeak of 26.0 mcg/ml and an expected Ctrough of 12.55 mcg/ml Renal dosing of other antibiotics (review renal dosing of other medications and list guidelines here): Thank you for the consult, will continue to follow. Signature: Eden Holt [facility]
[2021-04-23 05:58] LABS: Anion Gap 17.4 (5-19); Potassium 4.4 mmol/L (3.5-5.1)
[2021-04-23] MEDS: pantoprazole DR 40 mg Tablet PO (06:05)
[2021-04-23] MEDS: metoprolol tartrate 25 mg Tablet 12.5 MG PO (06:05)
[2021-04-23] MEDS: vancomycin 1,500 MG/300 ML PIGGYBACK 200 MG IV (06:06)
[2021-04-23] MEDS: chlorhexidine gluconate 0.12% Btl 473 mL 15 ML MUCOUS MEM (07:42)
[2021-04-23] MEDS: bacitracin ointment 28 gm 1 APPLIC TOPICAL (07:42)
[2021-04-23] MEDS: cloNIDine 0.1 mg Tablet PO (07:43)
[2021-04-23] MEDS: sennosides-docusate Tablet 1 TAB PO (07:44)
[2021-04-23] MEDS: dexamethasone 4 mg Tablet 2 MG PO (07:44)
[2021-04-23] MEDS: folic acid 1 mg Tablet PO (07:44)
[2021-04-23 09:06] LABS: Alcohol Level < 10 mg/dL (0-10)
[2021-04-23] MEDS: metoprolol tartrate 25 mg Tablet PO (10:15)
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
[2021-04-23] MEDS: ondansetron 2 mg/ML SDV 2 mL 4 MG IVP (11:05)
--- NOTE | 2021-04-25 16:28 | PC.SOCIAL ---
Called by Osbaldo in lab regarding postive nasal screen for MRSA. Discussed with Dr Dozier and reviewed meds ordered at discharge and Dr Dozier indicates Clindamycin is appropriate. Called patient to update him of this result and that Dr Dozier is aware and advised to complete his antibiotics ordered and that the Clindamycin is appropriate for coverage. Sent result to [facility]ley as well who is PCP. confirmation received that report was sent successfully.
== END 2021-04-23 11:19 | disposition home or self-care (01) ==
LOC: ER 14:21 → MEDSURG 18:09
PROVIDERS: Emergency Medicine; Hospitalist; Admitting Provider Internal Medicine; Emergency Provider Physician Assistant; PCP Nurse Practitioner Family; Visit Provider Internal Medicine
DX: L03.211 Cellulitis of face (principal); F41.9 Anxiety disorder, unspecified; K21.9 Gastro-esophageal reflux disease without esophagitis; I10 Essential (primary) hypertension; F17.210 Nicotine dependence, cigarettes, uncomplicated
CPT/HCPCS: 36415; 70487; 80048; 80307; 84145; 85025; 85651; 86140; 87040; 87641; 96365; 96367; 96372; 96375; 99285; G0378; J0295; J1170; J1885; J2270; J2405; J2543; J3370; J8540; Q9967

== ENCOUNTER 2021-05-07 01:25 | Emergency (ER) | payer BC, SELFPAY ==
[2021-05-07 01:26] VITALS: BP 161/105; PULSE 110; RESP 18; TEMP 36.4; O2SAT 98; BMI 31.0
[2021-05-07 02:30] VITALS: BP 145/81; PULSE 98; RESP 18; TEMP 36.4; O2SAT 98
[2021-05-07 02:30] LABS: Basophils % 0.3 %; Eosinophils # 0.1 10^3/uL (0.0-0.8); Eosinophils % 0.6 %; Hematocrit 49.4 % (42.0-52.0); Hemoglobin 16.7 g/dL (11.7-16.6); Lymphocytes # 2.4 10^3/uL (0.8-4.8); Lymphocytes % 27.3 %; Mean Corpuscular HGB Conc 33.8 g/dL (30.0-36.0); Mean Corpuscular Hemoglobin 28.7 pg (28.0-34.0); Mean Platelet Volume 9.6 fL (7.4-10.4); Monocytes # 0.7 10^3/uL (0.2-0.9); Monocytes % 7.5 %; Neutrophils # 5.54 10^3/uL (1.8-7.7); Nucleated Red Blood Cells % 0 %; Platelet Count 465 10^3/cmm (130-400); Red Blood Count 5.81 10^6/uL (4.1-5.3); White Blood Count 8.7 10^3/uL (4.0-10.0)
[2021-05-07 02:50] LABS: Alanine Aminotransferase 20 U/L (0-41); Albumin Level 4.6 g/dL (3.5-5.2); Alkaline Phosphatase 103 IU/L (40-130); Anion Gap 20.7 (5-19); Aspartate Amino Transferase 16 U/L (0-40); Blood Urea Nitrogen 8 mg/dL (6-20); C Reactive Protein 11.5 mg/L (0.0-4.9); Calcium 9.6 mg/dL (8.5-10.5); Carbon Dioxide 22 mmol/L (22-29); Chloride 98 mmol/L (98-107); Globulin 3.3 g/dL (1.3-4.6); Glomerular Filtration Rate 131.5 mL/min (90-130); Glucose 81 mg/dL (65-115); Lipase 24 U/L (13-60); Osmolality Calculated 281 mOsm/kg (285-295); Potassium 3.7 mmol/L (3.5-5.1); Sodium 137 mmol/L (136-145); Total Bilirubin 0.2 mg/dL (0.15-1.2); Total Protein 7.9 g/dL (6.6-8.7)
[2021-05-07] MEDS: ondansetron 2 mg/ML SDV 2 mL 4 MG IVP ×2 (02:59→05:07)
[2021-05-07] MEDS: sodium chloride 0.9% 1,000 ML 999 ML IV (02:59)
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
[2021-05-07 03:23] VITALS: RESP 18
[2021-05-07] MEDS: HYDROmorphone 1 mg/mL INJ 1 mL IVP (03:23)
[2021-05-07] MEDS: ketorolac 30 mg/mL INJ 15 MG IVP (03:23)
[2021-05-07 05:14] LABS: SARS Covid-2 Antigen Negative (Negative)
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
[2021-05-07] MEDS: amoxicillin-clav 875-125 mg Tablet 1 TAB PO (07:17)
== END 2021-05-07 09:35 | disposition home or self-care (01) ==
PROVIDERS: Emergency Provider Emergency Medicine; PCP Nurse Practitioner Family
DX: J01.80 Other acute sinusitis (principal); I10 Essential (primary) hypertension; F17.210 Nicotine dependence, cigarettes, uncomplicated; Z20.822 Contact with and (suspected) exposure to COVID-19
CPT/HCPCS: 70450; 80053; 83690; 85025; 86140; 87426; 96361; 96374; 96375; 96376; 99284; J1170; J1885; J2405; J7030

== ENCOUNTER 2021-07-21 08:34 | Inpatient (IN) | payer BC, SELFPAY ==
[2021-07-21] VITALS (7 sets, daily range): BP systolic 130–191; BP diastolic 103–120; PULSE 117–134; RESP 18–120; TEMP 36.7–37.2; O2SAT 95–98; BMI 32.5
--- NOTE | 2021-07-21 09:07 | W.ED.GENADLT ---
HPI - General Adult General: Chief complaint: General Medical Stated complaint: HEARING VOICES/THINKS HE HAS BEEN POISONED Time Seen by Provider: 07/21/21 08:36 Source: patient Mode of arrival: ambulatory Limitations: no limitations History of Present Illness: 30-year-old male presents emergency room with complaint of thinks he has been poisoned is also having hallucinations hearing voices. He admits to drinking heavily last night he said he drank about 1/5 of vodka. He does use methamphetamines but states its been a few days since he has used any. He says he thinks someone poisoned him last night that his belly is full and that he is going to . He does not Suprax any specific suicidal ideations he thinks someone has been out to get him. He has had similar presentations in the past including in December 2020 nearly identical presentation and chief complaint. Onset (ago): minute(s) Location: chest Radiation: neck and extremity (Arms and legs) Severity: moderate Quality: burning Pain Consistency: constant Relieving factors: none Exacerbating factors: none Associated symptoms: Reports chest pain and confusion; Deny cough, diaphoresis, decreased appetite, dyspnea, fevers/chills, headache(s), malaise, nausea, rash, palpitations, seizures, short of breath, syncope, vomiting or weakness Treatments prior to arrival: none Review of Systems Const: Denies: fever(s), chills, malaise or diaphoresis ENMT: Denies: throat pain, ear or mastoid pain, nasal discharge or nasal congestion Card: Reports: chest pain; Denies: palpitations or syncope Resp: Denies: dyspnea GI: Denies: nausea or vomiting : Denies: flank pain, dysuria, urinary frequency or urinary urgency Skin/Breast: Denies: rash Neuro: Reports: confusion; Denies: headache(s) [facility] ED PFSH: Medical History Anxiety ETOH abuse GERD (gastroesophageal reflux disease) Hypertension Non-healing skin lesion 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 Surgical History History of mandibular surgery Social History Smoking and tobacco status: current every day smoker Second hand smoke exposure: Yes Alcohol intake: former Last alcohol use date: 04/14/20 Other details last alcohol use: drank until drunk Adopted: No Lives independently: No Household members: family Housing: Other Marital status: Single Highest education level completed: High School Graduate service: No Current occupational status: other History of recent travel: No Current gender identity: Male Physical Exam Const: COMMON NORMALS: no acute distress GENERAL APPEARANCE: cooperative and comfortable ORIENTATION/CONSCIOUSNESS: Yes awake HENMT: COMMON NORMALS: normocephalic, atraumatic and hearing grossly normal bilaterally HEAD & SCALP: normocephalic and atraumatic Neck/C-Spine: COMMON NORMALS: no JVD Resp: COMMON NORMALS: normal respiratory effort, No retractions, No use of accessory muscles and clear to auscultation bilaterally AUSCULTATION: clear to auscultation bilaterally Cardio: COMMON NORMALS: no JVD, regular rate, regular rhythm and No murmurs present (Cardio) RATE: regular rate RHYTHM: regular rhythm GI: COMMON NORMALS: Soft to palpation and No hepatosplenomegaly present AUSCULTATION: Yes normoactive bowel sounds PALPATION: Yes Soft to palpation, No Tenderness to palpation present (GI), No Guarding due to palpation present (GI) and Yes No hepatosplenomegaly present Extremity: COMMON NORMALS: normal to inspection, capillary refill normal, no clubbing, cyanosis or edema, no calf tenderness and no pedal edema Skin: COMMON NORMALS: no rashes or lesions noted GENERAL SKIN EXAM: no rashes or lesions noted Course Vital Signs: Vital signs: Vital Signs Temperature 97.7 F 07/22/21 13:47 Pulse Rate 92 07/23/21 06:00 Respiratory Rate 18 07/23/21 12:54 Blood Pressure 113/74 07/23/21 06:00 Pulse Oximetry 95 07/23/21 12:[address] [facility] - General Adult Medical Decision Making Patient having paranoid delusional thoughts of persecution. He is having auditory hallucinations as well. He is quite agitated. The patient placed on a 96-hour hold discussed with Dr. Lau orders written. Medical Records I reviewed the patient's medical records. Lab Data I reviewed the patient's lab results. : 07/21/21 09:09 07/21/21 09:09 Radiology Impressions Chest X-Ray 07/21/21 09:58 Impression: Negative chest. Head CT 07/21/21 12:45 IMPRESSION: Negative head CT. Laboratory Results WBC 8.4 10^3/uL (4.0-10.0) 07/21/21 09:09 RBC 5.64 10^6/uL (4.1-5.3) H 07/21/21 09:09 Hgb 16.2 g/dL (11.7-16.6) 07/21/21 09:09 Hct 49.7 % (42.0-52.0) 07/21/21 09:09 MCV 88.1 fl (80-94) 07/21/21 09:09 MCH 28.7 pg (28.0-34.0) 07/21/21 09:09 MCHC 32.6 g/dL (30.0-36.0) 07/21/21 09:09 RDW 16.4 % (12.1-15.1) H 07/21/21 09:09 Plt Count 440 10^3/cmm (130-400) H 07/21/21 09:09 MPV 9.8 fL (7.4-10.4) 07/21/21 09:09 Neut % (Auto) 70.0 % 07/21/21 09:09 Lymph % (Auto) 21.9 % 07/21/21 09:09 [place] % (Auto) 6.9 % 07/21/21 09:09 Eos % (Auto) 0.1 % 07/21/21 09:09 Baso % (Auto) 0.7 % 07/21/21 09:09 Neut # (Auto) 5.85 10^3/uL (1.8-7.7) 07/21/21 09:09 Lymph # (Auto) 1.8 10^3/uL (0.8-4.8) 07/21/21 09:09 [place] # (Auto) 0.6 10^3/uL (0.2-0.9) 07/21/21 09:09 Eos # (Auto) 0.0 10^3/uL (0.0-0.8) 07/21/21 09:09 Baso # (Auto) 0.1 10^3/uL (0.0-0.1) 07/21/21 09:09 Nucleated RBC % (auto) 0 % 07/21/21 09:09 Nucleated RBCs # 0.0 /100WBC 07/21/21 09:09 Sodium 143 mmol/L (136-145) 07/21/21 09:09 Potassium 5.0 mmol/L (3.5-5.1) 07/21/21 09:09 Chloride 101 mmol/L (98-107) 07/21/21 09:09 Carbon Dioxide 26 mmol/L (22-29) 07/21/21 09:09 Anion Gap 21.0 (5-19) H 07/21/21 09:09 BUN 9 mg/dL (6-20) 07/21/21 09:09 Creatinine 0.9 mg/dL (0.7-1.2) 07/21/21 09:09 GFR Calculation 98.4 mL/min (90-130) 07/21/21 09:09 Glucose 125 mg/dL (65-115) H 07/21/21 09:09 Calculated Osmolality 296 mOsm/kg (285-295) H 07/21/21 09:09 Calcium 9.9 mg/dL (8.5-10.5) 07/21/21 09:09 Total Bilirubin 0.2 mg/dL (0.15-1.2) 07/21/21 09:09 AST 21 U/L (0-40) 07/21/21 09:09 ALT 31 U/L (0-41) 07/21/21 09:09 Alkaline Phosphatase 152 IU/L (40-130) H 07/21/21 09:09 Total Protein 8.3 g/dL (6.6-8.7) 07/21/21 09:09 Albumin 5.1 g/dL (3.5-5.2) 07/21/21 09:09 Globulin 3.2 g/dL (1.3-4.6) 07/21/21 09:09 Urine Color Yellow (Yellow) 07/21/21 10:06 Urine Appearance Clear (CLEAR) 07/21/21 10:06 Urine pH 6.5 (5-7) 07/21/21 10:06 Ur Specific [place] 1.010 (1.005-1.030) 07/21/21 10:06 Urine Protein Neg (Negative) 07/21/21 10:06 Urine Glucose (UA) Norm (Normal) 07/21/21 10:06 Urine Ketones Negative (Negative) 07/21/21 10:06 Urine Blood Neg (Negative) 07/21/21 10:06 Urine Nitrate Negative (Negative) 07/21/21 10:06 Urine Bilirubin Neg (Negative) 07/21/21 10:06 Urine Urobilinogen Norm mg/dL (Negative) 07/21/21 10:06 Ur Leukocyte Esterase Negative (Negative) 07/21/21 10:06 Salicylates 2.0 mg/dL (3-10) L 07/21/21 09:09 Urine Opiates Screen Negative ng/mL (Negative) 07/21/21 10:06 Acetaminophen < 5.0 ug/mL (10-30) L 07/21/21 09:09 Ur Barbiturates Screen Negative ng/mL (Negative) 07/21/21 10:06 Ur Phencyclidine Scrn Negative ng/mL (Negative) 07/21/21 10:06 Ur Amphetamines Screen Positive ng/mL (Negative) H 07/21/21 10:06 U Benzodiazepines Scrn Negative ng/mL (Negative) 07/21/21 10:06 Urine Cocaine Screen Negative ng/mL (Negative) 07/21/21 10:06 U Marijuana (THC) Screen Negative ng/mL (Negative) 07/21/21 10:06 Ethyl Alcohol < 10 mg/dL (0-10) 07/21/21 09:09 Discharge Plan Discharge Admit Provider: Ronnie Russell Condition: Stable Discharge Orders: Discharge Order (Routine); Ordered 07/23/21 Ordered By: Ronnie Russell Discharge Diet: Regular Discharge Activity: Resume usual activity Coding Level of Care Code ED Records Tech for Chg Fwd Exam Comprehensive
[2021-07-21] MEDS: hyDRALAzine 20 mg/mL INJ 1 mL IVP ×2 (09:14→13:14)
[2021-07-21 09:20] LABS: Basophils # 0.1 10^3/uL (0.0-0.1); Basophils % 0.7 %; Eosinophils % 0.1 %; Hematocrit 49.7 % (42.0-52.0); Hemoglobin 16.2 g/dL (11.7-16.6); Lymphocytes # 1.8 10^3/uL (0.8-4.8); Lymphocytes % 21.9 %; Mean Corpuscular HGB Conc 32.6 g/dL (30.0-36.0); Mean Corpuscular Hemoglobin 28.7 pg (28.0-34.0); Mean Corpuscular Volume 88.1 fl (80-94); Mean Platelet Volume 9.8 fL (7.4-10.4); Monocytes # 0.6 10^3/uL (0.2-0.9); Monocytes % 6.9 %; Neutrophils # 5.85 10^3/uL (1.8-7.7); Nucleated Red Blood Cells % 0 %; Platelet Count 440 10^3/cmm (130-400); Red Blood Count 5.64 10^6/uL (4.1-5.3); Red Cell Distribution Width 16.4 % (12.1-15.1); White Blood Count 8.4 10^3/uL (4.0-10.0)
[2021-07-21 09:52] LABS: Albumin Level 5.1 g/dL (3.5-5.2); Chloride 101 mmol/L (98-107); Sodium 143 mmol/L (136-145)
--- NOTE | 2021-07-21 09:58 | XR_ITS ---
WS: [id number] Portable AP upright chest, 07/21/2021 Clinical Data: chest pain Comparison: Portable chest, 07/17/2020. Findings: No nodules, masses or effusions are seen. The heart is normal. The pulmonary vascularity is not increased. No pneumonia or pneumothorax is seen. XR/XR chest 1V portable [id number] Impression: Negative chest.
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
[2021-07-21] MEDS: enalaprilat 1.25 mg/mL Inj IVP (10:04)
[2021-07-21] MEDS: LORazepam 2 mg/mL INJ 1 mL IVP ×2 (10:04→12:26)
[2021-07-21 10:10] LABS: Alanine Aminotransferase 31 U/L (0-41); Alkaline Phosphatase 152 IU/L (40-130); Blood Urea Nitrogen 9 mg/dL (6-20); Calcium 9.9 mg/dL (8.5-10.5); Carbon Dioxide 26 mmol/L (22-29); Globulin 3.2 g/dL (1.3-4.6); Glomerular Filtration Rate 98.4 mL/min (90-130); Glucose 125 mg/dL (65-115); Osmolality Calculated 296 mOsm/kg (285-295); Total Bilirubin 0.2 mg/dL (0.15-1.2); Total Protein 8.3 g/dL (6.6-8.7)
[2021-07-21 10:23] LABS: Acetaminophen < 5.0 ug/mL (10-30); Alcohol Level < 10 mg/dL (0-10)
[2021-07-21 11:01] LABS: Aspartate Amino Transferase 21 U/L (0-40)
[2021-07-21] MEDS: cloNIDine 0.1 mg Tablet PO (12:18)
[2021-07-21 12:36] LABS: Add Urine Microscopic? NO; Charge for UA Resulting for Rev
--- NOTE | 2021-07-21 12:45 | CT_ITS ---
WS: [id number] CT HEAD NONCONTRAST HISTORY: AMS TECHNIQUE: Contiguous axial imaging performed through the brain in 2.5 mm imaging. Bone and soft tiss ue windows. Sagittal and coronal reformats reviewed. All CT scans at [facility] use at least one of these dose optimization techniques: automated exposure control; mA and/or kV adjustment per pa tient size (includes targeted exams where dose is matched to clinical indication); or iterative recon struction. DLP: 866.26 mGy.cm COMPARISON: 05/07/2021 No acute intracranial hemorrhage, midline shift or mass effect. No atrophy or prior infarcts or herniation. Ventricles: Normal size with no hydrocephalus. Paranasal sinuses: Previously described sinusitis and air-fluid levels in the maxillary sinuses has r esolved. Sinus cavities are clear. Mastoid air cells: Well pneumatized. Calvarium and scalp: Skull is intact with no soft tissue edema or swelling. CT/CT head wo con* [id number] IMPRESSION: Negative head CT.
[2021-07-21 12:48] LABS: Urine Appearance Clear (CLEAR); Urine Color Yellow (Yellow)
[2021-07-21 12:49] LABS: Bilirubin Urine Neg (Negative); Blood Urine Neg (Negative); Glucose Urine UA Norm (Normal); Ketones Urine Negative (Negative); Leukocyte Esterase Urine Negative (Negative); Nitrate Urine Negative (Negative); Protein Urine Neg (Negative); Urobilinogen Urine Norm (Negative); pH Urine 6.5 (5-7)
[2021-07-21 13:02] LABS: Amphetamines Screen Urine Positive (Negative); Barbiturates Screen Urine Negative (Negative); Benzodiazepines Screen Urine Negative (Negative); Cocaine Screen Urine Negative (Negative); Opiate Screen Urine Negative (Negative); PCP Screen Urine Negative (Negative); THC Screen Urine Negative (Negative)
--- NOTE | 2021-07-21 14:27 | ECG_ITS ---
[facility] Test Date: 2021-07-21 Pat Name: Cosme Lux Department: Room: 131 Gender: Male Etl Inform[employer] Developer: : 1990 Requested By: Raji Farah Order Number: [id number] Rod MD: Kory Palomo M.D. Measurements Intervals [place] Rate: 120 P: 22 OK: 150 QRS: 21 QRSD: 91 T: 9 QT: 304 QTc: 430 Interpretive Statements SINUS TACHYCARDIA Compared to ECG 07/17/2020 06:52:45 No significant changes Electronically Signed On 07-21-2021 18:13:44 CDT by Kory Palomo M.D. [id number]
[2021-07-21] MEDS: HYDROcodone-acetaminophen 7.5-325 mg Tablet 1 TAB PO (14:48)
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
[2021-07-21] MEDS: hyDROXYzine 25 mg Capsule 50 MG PO (17:03)
[2021-07-21] MEDS: gabapentin 400 mg Capsule 800 MG PO ×2 (17:03→20:17)
[2021-07-21] MEDS: oxyCODONE 5 mg IR Tab/Cap 10 MG PO (17:03)
--- NOTE | 2021-07-21 17:07 | NPU.GN ---
[facility] Neuro[facility] Unit Group Topic: General Mood of Group
--- NOTE | 2021-07-21 17:07 | PC.NURSE ---
PRN Medication Up to nurses station request pain medication for 10/10 generalized pain. Oxycodone 10 mg given as ordered. C/O of anxiety as well. Vistaril 50 mg given as ordered. Is requesting more oxycodone. States he usually takes 20 mg tid. Informed patient to speak with doctor when he is seen and report what he usually takes. Patient reports he was unable to make his appointment to pain clinic due to mother dying and he was attending her in [place]. His mother passes a few weeks ago but he just returned a few days ago back to [place]..
[2021-07-21] MEDS: nicotine 2 mg Gum BUCCAL ×2 (17:12→20:26)
--- NOTE | 2021-07-21 17:43 | PC.NURSE ---
Reports oxycodone and vistaril were somewhat effective, Educated that if anxiety worsened to let this RN know and he could have Zydis.
--- NOTE | 2021-07-21 19:02 | PC.NURSE ---
Pt is wondering into a vacant room, staff redirected pt from the room, pt stated that he can do whatever the fuck he wants to ! Becoming agitated pacing in the hallways.
[2021-07-21] MEDS: OLANZapine 5 mg ODT PO (20:19)
[2021-07-21] MEDS: metoprolol tartrate 25 mg Tablet 12.5 MG PO (21:04)
--- NOTE | 2021-07-21 21:47 | PC.NURSE ---
PRN medications Nicotine gum and Olanzapine were given.
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
--- NOTE | 2021-07-21 22:25 | PC.NURSE ---
He is up at the nurses station demanding ativan and oxyodone. I offfered other meds that he could have. He stated, NO He threw crayon at the window and storm off.
[2021-07-22 06:00] VITALS: BP 122/79; PULSE 77; RESP 20; TEMP 36.5; O2SAT 98
[2021-07-22 07:43] VITALS: RESP 20; O2SAT 98
[2021-07-22] MEDS: oxyCODONE 5 mg IR Tab/Cap 10 MG PO (07:43)
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
[2021-07-22] MEDS: metoprolol tartrate 25 mg Tablet 12.5 MG PO (08:15)
[2021-07-22] MEDS: multivitamin therapeutic Tablet 1 TAB PO (08:17)
[2021-07-22] MEDS: pantoprazole DR 40 mg Tablet PO (08:17)
[2021-07-22] MEDS: folic acid 1 mg Tablet PO (08:17)
[2021-07-22] MEDS: gabapentin 400 mg Capsule 800 MG PO ×4 (08:19→20:06)
[2021-07-22] MEDS: thiamine 100 mg Tablet PO (08:19)
[2021-07-22] MEDS: nicotine 2 mg Gum BUCCAL ×3 (08:27→21:23)
[2021-07-22 12:00] VITALS: RESP 18; O2SAT 98
[2021-07-22] MEDS: oxyCODONE 5 mg IR Tab/Cap 15 MG PO ×2 (12:00→20:05)
--- NOTE | 2021-07-22 12:04 | PC.NURSE ---
Prn note Patient very irritable, noted to be screaming at other patients to get out of his face Dr. Russell added new order for Oxycodone 15mg q 8 hours. He requested staff start that now. Patient stated his pain in his mouth is 10/10. Oxycodone given per order. Patient went to rest in his room.
[2021-07-22 13:47] VITALS: BP 133/99; PULSE 77; RESP 17; TEMP 36.5; O2SAT 97
[2021-07-22] MEDS: acetaminophen 325 mg Tablet 650 MG PO (14:27)
--- NOTE | 2021-07-22 16:51 | PC.SOCIAL ---
Patient did not attend group.
[2021-07-22 20:05] VITALS: RESP 18
[2021-07-22 20:17] VITALS: BP 112/76; PULSE 81; RESP 17; O2SAT 98
[2021-07-22] MEDS: prazosin 1 mg Capsule 3 MG PO (21:15)
[2021-07-22] MEDS: quetiapine 100 mg Tablet PO (21:15)
[2021-07-22] MEDS: duloxetine 60 mg Capsule PO (21:15)
[2021-07-22] MEDS: trazodone 50 mg Tablet PO (23:28)
[2021-07-22] MEDS: ibuprofen 600 mg Tablet PO (23:28)
--- NOTE | 2021-07-23 00:30 | PC.NURSE ---
2005-Oxycodone given for facial pain. Trazodone for sleep at 5898.
[2021-07-23 06:00] VITALS: BP 113/74; PULSE 92; RESP 18; O2SAT 96
[2021-07-23] MEDS: metoprolol tartrate 25 mg Tablet 12.5 MG PO (08:03)
[2021-07-23 08:05] VITALS: RESP 18; O2SAT 95
[2021-07-23] MEDS: oxyCODONE 5 mg IR Tab/Cap 15 MG PO (08:05)
--- NOTE | 2021-07-23 09:20 | PC.NURSE ---
Addendum entered by Holly Deshpande RN 07/23/21 09:24: Denies SI/HI and AVH at this time. Original Note: AM assessment Resting in bed arouses to voice. Denies SI/HI and AVH at this time. States face pain is 10/10 and, My oxy needs increased. Informed patient I would put his pain medication in with AM meds. States in a loud voice I need my meds now. Informed he would get meds as soon as med nurse pulled them. Continued to be agitated. This RN went and got medications. Patient up to window. Showed all medications, popped out medications in front of patient with education provided on each. When patient went to take medications picked out his oxycodone 15 mg and half a Metoprolol. States, That other shit doesn't look like anything I take. Attempts to show patient medications and he continued to walk off mumbling and saying cuss words. Reported to Dr. Russell at 0919. No new orders.
--- NOTE | 2021-07-23 10:49 | PC.NURSE ---
PRN Medications Oxycodone 15 mg given for 10/10 face pain at 0855. At 0930 patient was resting in bed no distress or discomfort noted or observed.
--- NOTE | 2021-07-23 12:25 | PC.NURSE ---
pt asking for pain medication, pt was laying in bed when instucted pt that he received oxycodone at 0805 this am and it is an 8 hr med and not due till 1600 but he has gabapentin due at 1300, pt became agitated and told this nurse to fuck off your stupid bitch, i took it at 7 and i can have it at 1. get out of here you fucking bitch instructed pt to not speak to me and curse at me in that manner, pt cont to tell this nurse to fuck off bitch, you cant do anything to me . informed charge nurse and dr reyes of incident
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
[2021-07-23 12:54] VITALS: RESP 18; O2SAT 95
== END 2021-07-23 13:47 | disposition home or self-care (01) | DRG 885 ==
LOC: ER 09:08 → NP 07-22 06:07
PROVIDERS: Admitting Provider Psychiatry & Neurology Psychiatry; Emergency Provider Family Medicine; PCP Nurse Practitioner Family; Visit Provider Psychiatry & Neurology Psychiatry
DX: F29 Unspecified psychosis not due to a substance or known physiological condition (principal); F43.10 Post-traumatic stress disorder, unspecified; F10.10 Alcohol abuse, uncomplicated; F15.10 Other stimulant abuse, uncomplicated; F41.9 Anxiety disorder, unspecified; F17.210 Nicotine dependence, cigarettes, uncomplicated; Z81.1 Family history of alcohol abuse and dependence; G89.29 Other chronic pain; Z79.891 Long term (current) use of opiate analgesic
CPT/HCPCS: 70450; 71045; 80053; 80306; 80307; 81003; 85025; 93005; 96374; 96375; 96376; 97150; 97165; 99285; J0360; J2060; J3490